=== PATIENT | female | born 1965 | race Caucasian/White ===

== ENCOUNTER 2023-10-24 15:48 | Outpatient (REF) | payer BC, SELFPAY ==
[2023-10-24 16:44] LABS: MANUAL DIFF FLAG NO
[2023-10-24 17:23] LABS: Basophils Absolute Auto 0.1 X10*3/uL (0.0-0.2); Eosinophils Absolute Auto 0.2 X10*3/uL (0.0-0.4); Eosinophils Percent Auto 3.7 % (0-4); Hematocrit 39.2 % (37.0-47.0); Hemoglobin 12.7 g/dl (12.0-16.0); Imm Gran Abs Auto 0.01 X10*3/uL (0.00-0.03); Imm Gran Pct Auto 0.2 % (0.0-0.4); Lymphocytes Absolute Auto 1.8 X10*3/uL (1.2-4.9); Lymphocytes Percent Auto 36.9 % (20-40); Mean Corpuscular HGB Conc 32.4 g/dl (31.0-35.0); Mean Corpuscular Hemoglobin 26.7 pg (27.0-33.0); Mean Corpuscular Volume 82.5 fL (80.0-98.0); Mean Platelet Volume 9.2 fL (9.4-12.3); Monocytes Absolute Auto 0.4 X10*3/uL (0.1-1.2); Monocytes Percent Auto 7.6 % (2-11); Neutrophils Absolute Auto 2.5 x10*3/uL (2.0-8.3); Neutrophils Percent Auto 50.6 % (45-73); Platelet Count 372 X10*3/uL (160-400); Red Blood Count 4.75 X10*6/uL (4.20-5.50); Red Cell Distribution Width 16.7 % (11.0-16.0); White Blood Count 4.9 X10*3/uL (4.8-10.8)
[2023-10-24 18:47] LABS: Carbamazepine Tegretol 9.5 mcg/mL (5.0-12.0)
[2023-10-24 18:52] LABS: Alanine Aminotransferase 20 U/L (0-31); Albumin Level 4.8 g/dL (3.5-5.0); Alkaline Phosphatase 90 U/L (39-117); Anion Gap 18 (12-20); Aspartate Amino Transferase 24 U/L (5-31); Bilirubin Total 0.2 mg/dL (0.0-1.0); Blood Urea Nitrogen 9 mg/dL (9-16); Calcium 10.3 mg/dL (8.4-10.2); Carbon Dioxide 22 mmol/L (22-29); Chloride 99 mmol/L (96-108); Estimated Glomerular Filt Rate > 60; Glucose Random 96 mg/dL (60-115); Iron 51 mcg/dL (30-160); Percent Iron Saturation 14 % (15-50); Sodium 135 mmol/L (135-145); Total Iron Binding Capacity 366 mcg/dL (228-428); Total Protein 8.3 g/dL (6.5-8.0); Unsaturated Iron Binding 315 ug/dL
[2023-10-24 19:10] LABS: TSH reflex Free T4 2.21 uIU/mL (0.32-4.0)
== END 2023-10-24 15:49 | disposition home or self-care (01) ==
LOC: HO.LAB 15:48
PROVIDERS: Physician Assistant; PCP Internal Medicine; Visit Provider Internal Medicine
DX: R53.83 Other fatigue (principal); D64.9 Anemia, unspecified
CPT/HCPCS: 36415; 80053; 80156; 82550; 83540; 84443; 85025

== ENCOUNTER 2024-04-26 10:22 | Outpatient (AMB) | payer BC, SELFPAY ==
--- NOTE | 2024-04-26 10:40 | A.SPINEOV_ITS ---
Vital Signs 04/26/24 10:42 Height 4 ft 11 in Weight 195 lb BMI 39.4 Intake Visit Reasons: spinal stenosis/DDD Intake Note: Ms. Fajardo is here today c/o Low back pain that radiates down to the ankles. Coal Miner Required: No Allergies phenytoin [From DILANTIN] Allergy (Intermediate, Verified 04/26/24 10:41) RASH amoxicillin [Augmentin] Allergy (Unknown, Verified 04/26/24 10:41) Unknown clavulanic acid [Augmentin] Allergy (Unknown, Verified 04/26/24 10:41) Unknown Physical Exam Vital Signs: BMI result Body Mass Index 39.4 Assessment & Plan Assessment & Plan (1) Lumbar degenerative disc disease: Code(s): M51.369 - Other intervertebral disc degeneration, lumbar region without mention of lumbar back pain or lower extremity pain Category: Medical Plan Dear dear colleague Thank you for referring Abby Fajardo to the office today with a chief complaint of bilateral leg pain. HPI: This 59-year-old female states that she has a 5 year history of pain radiating down both legs with walking and standing. The symptoms improve when she sits down. She was seen by Dr. Linares in the past who gave her injections without relief. She has mild numbness on the lateral side of her right thigh. No motor weakness. She has diffuse arthritis. She denies weakness. Comes in for surgical consultation PMH: Bilateral hand surgeries, cholecystectomy, ischemic stroke, bleeding ulcers, seizure disorder Medications: Tegretol losartan, gabapentin, Soma, Tylenol aspirin, ibuprofen p.r.n. Allergies: Dilantin Social history: Employed. Nonsmoker. Physical Exam: She ambulates with a cane in a flexed position with bilateral feet in inversion. Straight leg raise negative. No motor deficits or sensory deficits. Radiological Studies: MRI done at [facility] shows multilevel lumbar degenerative disc disease and mild multilevel central and foraminal stenosis Impression/Plan: This patient clinically as to symptoms of neurogenic claudication but the MRI is not able to confirm this diagnosis. I reviewed the imaging in detail with the patient and explained to her that her radiological features are not severe enough to undergo a decompressive surgery. I recommended pain management. I discharged her from further follow-up. Thank you for allowing me to participate in your patients care. total time spent was 50 minutes in counseling ,coordination of plan, personal review of imaging, surgical decision making and subsequent plan Ranjit Pennings MD, PhD Spine Fellowship Trained Neurosurgeon Director, [facility] Coding Level of Care Code New Pt Level 4 (69699) Diagnoses Lumbar degenerative disc disease M51.369
[2024-04-26 10:42] VITALS: BMI 39.4
== END 2024-04-26 11:11 | disposition home or self-care (01) ==
PROVIDERS: PCP Internal Medicine; Referring Provider Physician Assistant; Visit Provider Neurological Surgery
DX: M51.369 Other intervertebral disc degeneration, lumbar region without mention of lumbar back pain or lower extremity pain (principal)
CPT/HCPCS: 99204

== ENCOUNTER → 2024-04-26 10:22 | Outpatient (BNVA) | payer BC, SELFPAY | PROVIDERS: PCP Internal Medicine; Referring Provider Physician Assistant; Visit Provider Neurological Surgery ==

== ENCOUNTER 2025-02-06 12:53 | Outpatient (AMB) | payer BC, SELFPAY ==
--- NOTE | 2025-02-06 13:03 | A.OFFPC_ITS ---
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 Intake Note: New patient visit Principle Industrial Hygienist Required: No Allergies phenytoin (From DILANTIN) Allergy (Severe, Verified 02/06/25 13:10) RASH amoxicillin (Augmentin) Allergy (Unknown, Verified 02/06/25 13:03) Unknown clavulanic acid (Augmentin) Allergy (Unknown, Verified 02/06/25 13:03) Unknown Medication List - Last Reconciled 02/06/25 by Palma Weeks PA-C carisoprodol (Soma) 350 mg PO BEDTIME PRN 30 days gabapentin 100 mg PO TID losartan 25 mg PO BID Tobacco use date assessed: 02/06/25 Dental Screening Dental Screen Date: 02/06/25 Did you have a dental visit in the last 12 months?: Yes Did you have a dental problem in the last 6 months where you did not have access to dental care?: No Was dental information given to patient?: Patient has dentist HPI Senior Linux Systems Engineer regular appointment HPI Details Patient is a 56-year-old female who presents today to [facility] care. She is transferring from [facility]. She reports a significant past medical history of hypertension, seizure disorder, hx of cva, history of peptic ulcer disease, OA, DDD, and chronic pain. MSK: She did bring in a printed list today describing all of her aches and pains. -reports bilateral hip pain that she faviola cribes as stabbing and throbbing in nature with also an intermittent pinching in her thigh. Sometimes it feels like it locks up and she can not move as well. She also gets an intermittent burning sensation in her legs. Sometimes it feels like they could give out. -endorses bilateral knee pain right is w orse than left -states her lower legs are also very salome nful and the pain feels like a throbbing sensation which makes it difficult to sleep. Sometimes feels like there is a steel jamie in her lower leg. -states that she has pain in her low diane k that is mostly with walking and sitting for long periods. States that it feels like her spine pops out 20 times a day. -also reports neck and shoulder pain mos tly on the right side. States that previously her right biceps was ruptured. Her neck cracks frequently. -bilateral elbow pain -reports bilateral wrist and hand pain a s well -also endorses right foot pain not const ant but also very often. Has a bunion. States that she takes gabapentin 300 mg total daily and Soma as needed for muscle pain. She is also on Tylenol up to 4 mg a day and ibuprofen typically 400 mg per day. She hsa followed with Dr. Rojas and states that there was not much that could be offered. She has tried injections in the past but ineffective. She states that she saw rheum who told her she was wasting their time . CV: Blood pressure today in the office is elevated at 148/108. She states at home her bp is normal around 120/70. She gets stressed coming into doctor's off ices and has a hx of white coat htn. Asymptomatic. She is supposed to be on losartan 25 mg twice a day. Neuro: On Tegretol 200 mg q.i.d. following with Neurology, Dr. Alonso. She also reports a hx of a stroke 11 years ago and denies any lingering sx. GI: On omeprazole 20 mg Psych: states that she has some depression but only related to needing a cane. She does not like that she has to use a cane and cannot bowl anymore. Denies real depression sx. 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 1. Little interest or pleasure in doing things: several days (Because of issues with walking, and cane) 2. Feeling down, depressed, or hopeless: several days (Because of issues with walking, and cane) 3. Trouble falling or staying asleep, or sleeping too much: several days (Because of issues with walking, and cane) 4. Feeling tired or having little energy: several days (Because of issues with walking, and cane) 5. Poor appetite or overeating: not at all 6. Feeling bad about yourself - or that you are a failure or have let yourself or your family down: not at all 7. Trouble concentrating on things, such as reading the newspaper or watching television: not at all 8. Moving or speaking so slowly that other people could have noticed. Or the opposite - being so fidgety or restless that you have been moving around a lot more than usual: nearly every day (Because of issues with walking, and cane) 9. Thoughts that you would be better off or of hurting yourself in some way: not at all Total score: 7 Depression Screening Interpretation: Positive Depression Screening Follow-up: Existing condition, Follow-up Visit Requested and Declines treatment Depression Screening Done: Yes 46084 - PHQ-9 Billing: Yes Source: Developed by Drs. Xiang Joshua, Nichole Neil, Bernardino Hunt and colleagues, with an educational jazzy from [employer]. Thrive Questionnaire I am a: Patient What is your living situation today?: I have a steady place to live Within the past 12 months, did the food you bought not last and you didn't have the money to get more?: Never true Within the past 12 months, did you worry whether your food would run out before you got money to buy more?: Never true Do you have trouble paying for medicines?: No Do you have trouble getting transportation to medical appointments?: No Do you have trouble paying your heating and electricity bill?: No Do you have trouble taking care of your child, family member or friend?: I choose not to answer this question Do you have trouble with day-to-day activities such as bathing, preparing meals, shopping, managing finances, etc.?: I choose not to answer this question Are you currently unemployed and looking for a job?: No Are you interested in more education?: No Please select the resources that you would like help with: None Currently or been in a relationship where the following occur: No concerns reported THRIVE Score: 0 AUDIT C Alcohol Use Questionnaire (AUDIT-C) 1. How often do you have a drink containing alcohol?: Never Total Score: 0 NINA-7 AMB Questionnaire NINA-7 Date NINA - 7 assessed: 02/06/25 Feeling nervous, anxious, or on edge: 0 = Not at all Not being able to stop or control worryin = Not at all Worrying too much about different things: 0 = Not at all Trouble relaxin = Not at all Being so restless that it is hard to sit still: 0 = Not at all Becoming easily annoyed or irritable: 0 = Not at all Feeling afraid as if something awful might happen: 0 = Not at all Total NINA-7 score (0-4 normal; 5-9 mild; 10-14 moderate; 15-21 severe): 0 Source: Developed by Drs. Xiang Joshua, Nichole Neil, Bernardino Hunt and colleagues, with an educational jazzy from [employer]. NINA-7 Assessment Billing NINA-7 Assessment Tool: NINA-7 Assessment 70937 Physical exam (Primary Care) Vital Signs: Last Vital Signs Temp 98.4 F 02/06/25 13:09 Pulse 97 02/06/25 13:09 Resp 14 02/06/25 13:09 BP 148/108 H 02/06/25 13:09 Pulse Ox 97 02/06/25 13:09 Oxygen Delivery Method Room Air 02/06/25 13:09 BMI result Body Mass Index 39.8 Tobacco/Smoking Status: Tobacco use Status Tobacco use date assessed 02/06/25 02/06/25 13:06 Patient Tobacco Use Status Never used Tobacco 02/06/25 13:06 e-Cigarette/Vaping Use Never Used 02/06/25 13:14 PHQ-9: PHQ-9 Score PHQ-9: Total score 7 02/06/25 13:18 Depression Screening Interpretation: Positive Depression Screening Follow-up: Existing condition, Follow-up Visit Requested and Declines treatment Currently or been in a relationship where the following occur: No concerns reported Const Orientation/consciousness: patient oriented x3 HENMT Ears: hearing grossly normal bilaterally and TM's normal bilaterally General nose exam: No nasal polyps present Face and sinus: Yes sinuses nontender Mouth: Normal oral and palatal mucosa present Eyes Pupils: Equal, round and reactive pupils present EOM: EOMs intact bilaterally Neck Neck: Yes full ROM and Yes no lymphadenopathy Thyroid: Thyroid normal Chest Chest palpation & inspection: normal inspection of the chest Resp Auscultation: clear to auscultation bilaterally Cardio Rate: regular rate Rhythm: regular rhythm Heart sounds: S1 normal heart sound present and S2 normal heart sound present Peripheral pulses: Peripheral pulses 2+ throughout GI Other: Soft, nontender Auscultation: normal bowel sounds Rectal Exam - Female: deferred General: Yes no CVA tenderness Back/Spine/Pelvis Other: Nontender Back: no CVA tenderness Skin General skin exam: no rashes or lesions noted Neuro General: patient oriented x3, gait normal, CN's II-XI intact bilaterally and deep tendon reflexes 2+ bilaterally Cranial nerves: Yes Equal, round and reactive pupils present Motor exam (neuro): 5/5 motor strength present throughout Sensory Exam: double simultaneous stimulation for sensation normal Coordination: [id number] test normal and Romberg test negative Extrem General: Yes normal to inspection and Yes full ROM Psych Affect: normal affect Attitude: cooperative Thought process: Normal thought process present Thought content: Normal thought content present Insight: Good insight present (Psych) Judgement: Good judgement present (Psych) Coding Level of Care Code New Pt Level 5 (69668) Complex EM visit Add On G2211 Diagnoses Lumbar degenerative disc disease M51.369 Bilateral knee pain M25.561; M25.562 Neck pain M54.2 HTN (hypertension) I10 Prediabetes R73.03 Bilateral hip pain M25.551; M25.552 Additional Codes NINA-7 Assessment Billing - NINA-7 Assessment Tool: NINA-7 Assessment 82077 ([id number]) PHQ-9 - 03455 - PHQ-9 Billing: Yes ([id number]) Assessment & Plan Assessment & Plan (1) Lumbar degenerative disc disease: Code(s): M51.369 - Other intervertebral disc degeneration, lumbar region without mention of lumbar back pain or lower extremity pain Category: Medical Plan: has tried injections without improvement currently on gabapentin, ibuprofen, soma prn, tylenol (2) Bilateral knee pain: Code(s): M25.561 - Pain in right knee; M25.562 - Pain in left knee Category: Medical Plan: as above (3) Neck pain: Code(s): M54.2 - Cervicalgia Category: Medical Plan: as above (4) HTN (hypertension): Code(s): I10 - Essential (primary) hypertension Category: Medical Plan: monitors at home and reports wnl advised to bring cuff into next appointment will recehck in a few weeks (5) Prediabetes: Code(s): R73.03 - Prediabetes Category: Medical Plan: a1c ordered (6) Bilateral hip pain: Code(s): M25.551 - Pain in right hip; M25.552 - Pain in left hip Category: Medical Plan: referral to ortho Plan 70 min spent in direct patient care, chart review, reviewing her list of concerns, note dictation Orders: Orders Comprehensive [place]. Panel Fast Today I10 - Essential (primary) hypertension, M25.561 - Pain in right knee, M25.562 - Pain in left knee, M51.369 - Other intervertebral disc degeneration, lumbar region without mention of lumbar back pain or lower extremity pain, M54.2 - Cervicalgia, R73.03 - Prediabetes Hemoglobin A1c Today I10 - Essential (primary) hypertension, M25.561 - Pain in right knee, M25.562 - Pain in left knee, M51.369 - Other intervertebral disc degeneration, lumbar region without mention of lumbar back pain or lower extremity pain, M54.2 - Cervicalgia, R73.01 - Impaired fasting glucose, R73.03 - Prediabetes Microalbumin, Random (w Creat) Today I10 - Essential (primary) hypertension, M25.561 - Pain in right knee, M25.562 - Pain in left knee, M51.369 - Other intervertebral disc degeneration, lumbar region without mention of lumbar back pain or lower extremity pain, M54.2 - Cervicalgia, R73.03 - Prediabetes Complete Blood Count Auto Diff Today I10 - Essential (primary) hypertension, M25.561 - Pain in right knee, M25.562 - Pain in left knee, M51.369 - Other intervertebral disc degeneration, lumbar region without mention of lumbar back pain or lower extremity pain, M54.2 - Cervicalgia, R73.03 - Prediabetes Lipid Panel Today I10 - Essential (primary) hypertension, M25.561 - Pain in right knee, M25.562 - Pain in left knee, M51.369 - Other intervertebral disc degeneration, lumbar region without mention of lumbar back pain or lower ex tremity pain, M54.2 - Cervicalgia, R73.03 - Prediabetes TSH reflex Free T4 Today I10 - Essential (primary) hypertension, M25.561 - Pain in right knee, M25.562 - Pain in left knee, M51.369 - Other intervertebral disc degeneration, lumbar region without mention of lumbar back pain or lower extremity pain, M54.2 - Cervicalgia, R73.03 - Prediabetes UA CC w/rflx Micro + Cult Today I10 - Essential (primary) hypertension, M25.561 - Pain in right knee, M25.562 - Pain in left knee, M51.369 - Other intervertebral disc degeneration, lumbar region without mention of lumbar back pain or lower extremity pain, M54.2 - Cervicalgia, R30.0 - Dysuria, R73.03 - Prediabetes Referrals Orthopedics Referral M25.551 - Pain in right hip, M25.552 - Pain in left hip, M25.561 - Pain in right knee, M25.562 - Pain in left knee, M51.369 - Other intervertebral disc degeneration, lumbar region without mention of lumbar back pain or lower extremity pain Medications: New losartan 25 mg PO BID 180 tabs 3RF gabapentin 100 mg PO TID 270 caps 3RF carisoprodol (Soma) 350 mg PO BEDTIME PRN 30 tabs 3RF muscle pain 30 days
[2025-02-06 13:09] VITALS: BP 148/108; PULSE 97; RESP 14; TEMP 36.9; O2SAT 97; BMI 39.8
--- OUTSIDE RECORDS SUMMARY | 2025-02-06 13:27 | XMS_ITS | Encounter Summary ---
Author Organization [facility] Address [address] [place] [address] Phone Care Team Providers Care Profile Saw Setup Operator Name Role Phone Halle Dave MD Primary Care Provider [phone] Halle Dave MD Unavailable [phone] Encounter Details Date Type Department Care Team (Late st Contact Info) Description 05/02/2017 Ancillary Orders [facility], -[address] [address] Jessie Chua PA [address] [place] [address] [email or web address]) Low back pain, unspecified back pain laterality, unspecified chronicity, with sciatica presence unspecified; Groin pain, right Social History Tobacco Use Types Packs/Day Years Used Date Smoking Tobacco: Never Assessed Comments Unknown Sex and Gender Information Value Date Recorded Sex Assigned at Not on file Legal Sex Female 9:40 PM EDT Gender Identity Not on file Sexual Orientation Not on file documented as of this encounter Plan of Treatment Not on file documented as of this encounter Results * XR Pelvis Outside (No Interpretation) (05/02/2017 12:00 AM EST) Narrative SYSTEMGENERATED, DOCUMENTATION - 05/02/2017 2:17 PM EST This study is for PACS storage only and not for interpretation. us Jessie MARTÍNEZ IMG OUTSIDE IMAGING W/OUT INTER PRETATION Final Result documented in this encounter Visit Diagnoses Diagnosis Low back pain, unspecified back pain laterality, unspecified chronicity, with sciatica presence unspecified Groin pain, right Low back pain, unspecified back pain laterality, unspecified chronicity, with sciatica presence unspecified Groin pain, right documented in this encounter Care Teams Profile Saw Setup Operator Relationship Specialty Start Date End Date Halle Dave MD [address] [place] [address] [email or web address] PCP - General 03/27/17 Halle Dave MD [address] [place] [address] [email or web address] Insurance Assigned Provider 09/16/23 documented as of this encounter Additional Source Comments The information contained in this document represents components of the legal health record. It is not the complete legal health record.[facility]
--- OUTSIDE RECORDS SUMMARY | 2025-02-06 13:27 | XMS_ITS | Encounter Summary ---
Author Organization [facility] Address [address] [place] [address] Phone Care Team Providers Care Assistive Technology Specialist Name Role Phone Halle Dave MD Primary Care Provider [phone] Halle Dave MD Unavailable [phone] Encounter Details Date Type Department Care Team (Late st Contact Info) Description 10/30/2018 Ancillary Orders [facility] - [address] [address] Daria Matthews MD [address] [place] [address] Orthopedics & Sports Medicine, [facility] [place] [address] [email or web address] Wrist pain, acute, left Social History Tobacco Use Types Packs/Day Years Used Date Smoking Tobacco: Never Smokeless Tobacco: Never Alcohol Use Standard Drinks/Week Comments No 0 (1 standard drink = 0.6 oz pur e alcohol) Comments Unknown Sex and Gender Information Value Date Recorded Sex Assigned at Not on file Legal Sex Female 9:40 PM EDT Gender Identity Not on file Sexual Orientation Not on file documented as of this encounter Plan of Treatment Not on file documented as of this encounter Results * XR WRIST 3 OR MORE VIEWS (LEFT) (10/30/2018 9:49 AM EDT) Narrative SYSTEMGENERATED, DOCUMENTATION - 10/30/2018 9:49 AM EDT This image report has been auto-finalized and has not been read by a Radiologist. Interpretation has been included in the provider encounter note for this date of service. us Daria Matthews MD IMG XR UPPER EXTREMITY Final Result documented in this encounter Visit Diagnoses Diagnosis Wrist pain, acute, left Wrist pain, acute, left documented in this encounter Care Teams Assistive Technology Specialist Relationship Specialty Start Date End Date Halle Dave MD [address] [place] [address] [email or web address] PCP - General 03/27/17 Halle Dave MD [address] [place] [address] [email or web address] Insurance Assigned Provider 09/16/23 documented as of this encounter Additional Source Comments The information contained in this document represents components of the legal health record. It is not the complete legal health record.[facility]
--- OUTSIDE RECORDS SUMMARY | 2025-02-06 13:27 | XMS_ITS | Encounter Summary ---
Author Organization [facility] Address [address] [place] [address] Phone Care Team Providers Care Mac Artist Name Role Phone Halle Dave MD Primary Care Provider [phone] Halle Dave MD Unavailable [phone] Encounter Details Date Type Department Care Team (Late st Contact Info) Description 10/31/2018 Prep for Surgery [facility] Virtual Department [address] [place] [address] Daria Matthews MD [address] [place] [address] [facility] [place] [address] Social History Tobacco Use Types Packs/Day Years [...] on file documented as of this encounter Visit Diagnoses Not on filedocumented in this encounter Care Teams Mac Artist Relationship Specialty Start Date End Date Halle Dave MD [address] [place] [address] PCP - General 03/27/17 Halle Dave MD [address] [place] [address] [email or web address] Insurance Assigned Provider 09/16/23 documented as of this encounter Additional Source Comments The information contained in this document represents components of the legal health record. It is not the complete legal health record.[facility]
--- OUTSIDE RECORDS SUMMARY | 2025-02-06 13:27 | XMS_ITS | Encounter Summary ---
Author Organization [facility] Address [address] [place] [address] Phone Care Team Providers Care Sales Account Associate Name Role Phone Halle Dave MD Primary Care Provider [phone] Halle Dave MD Unavailable [phone] Encounter Details Date Type Department Care Team (Late st Contact Info) Description 10/31/2018 Prep for Surgery [facility] Virtual Department [address] [place] [address] Daria Matthews MD [address] [place] [address] [facility] [place] [address] Social History Tobacco Use Types Packs/Day Years [...] on filedocumented in this encounter Care Teams Sales Account Associate Relationship Specialty Start Date End Date Halle Dave MD [address] [place] [address] PCP - General 03/27/17 Halle Dave MD [address] [place] [address] [email or web address] Insurance Assigned Provider 09/16/23 documented as of this encounter Additional Source Comments The information contained in this document represents components of the legal health record. It is not the complete legal health record.[facility]
--- OUTSIDE RECORDS SUMMARY | 2025-02-06 13:27 | XMS_ITS | Encounter Summary ---
Author Organization [facility] Address [address] [place] [address] Phone Care Team Providers Care Metal Bench Patternmaker Name Role Phone Halle Dave MD Primary Care Provider [phone] Halle Dave MD Unavailable [phone] Encounter Details Date Type Department Care Team (Latest Contact Info) Description 05/02/2023 Transcribe Orders Virtual Department [address] [place] [address] Jessie Chua PA [address] [place] [address] [email or web address] Bilateral hip pain (Primary Dx); Bilateral thigh pain Social History Tobacco Use Types Packs/Day Years Used Date Smoking Tobacco: Never Smokeless Tobacco: Never Alcohol Use Standard Drinks/Week Comments No 0 (1 standard drink = 0.6 oz pur e alcohol) Education Answer Date Recorded Are you interested in more education? Not on kraig e 10/07/2022 Are you concerned about learning? Not on file 10/07/2022 No 10/07/2022 No 10/07/2022 Digital Access Answer Date Recorded No 11/07/2022 No 11/07/2022 Reliable internet access at home? Not on file 11/07/2022 Device with a working camera? Not on file Comments No Sex and Gender Information Value Date Recorded Sex Assigned at Not on file Legal Sex Female 9:40 PM EDT Gender Identity Not on file Sexual Orientation Not on file documented as of this encounter Plan of Treatment Not on file documented as of this encounter Visit Diagnoses Diagnosis Bilateral hip pain- Primary Pain in joint, pelvic region and thigh Bilateral thigh pain documented in this encounter Care Teams Metal Bench Patternmaker Relationship Specialty Start Date End Date Halle Dave MD [address] [place] [address] [email or web address] PCP - General 03/27/17 Halle Dave MD [address] [place] [address] [email or web address] Insurance Assigned Provider 09/16/23 documented as of this encounter Additional Source Comments The information contained in this document represents components of the legal health record. It is not the complete legal health record.[facility]
--- OUTSIDE RECORDS SUMMARY | 2025-02-06 13:27 | XMS_ITS | Encounter Summary ---
Author Organization [facility] Address [address] [place] [address] Phone Care Team Providers Care Collateral Analyst Name Role Phone Halle Dave MD Primary Care Provider [phone] Halle Dave MD Unavailable [phone] Encounter Details Date Type Department Care Team (Late st Contact Info) Description 05/02/2017 Ancillary Orders [facility], -[address] [address] Jessie Chua PA [address] [place] [address] [email or web address] Low back pain, unspecified back pain laterality, unspecified chronicity, with sciatica presence unspecified Social History Tobacco Use Types Packs/Day Years Used Date Smoking Tobacco: Never Assessed Comments Unknown Sex and Gender Information Value Date Recorded Sex Assigned at Not on file Legal Sex Female 9:40 PM EDT Gender Identity Not on file Sexual Orientation Not on file documented as of this encounter Plan of Treatment Not on file documented as of this encounter Results * XR LUMBOSACRAL SPINE 4 OR MORE VIEWS (05/02/2017 2:49 PM EST) Anatomical Region Laterality Modality L-spine Radiographic Desirae ging 05/02/2017 2:50 PM EST Impressions 05/02/2017 2:54 PM EST Impression: Multilevel severe degenerative disc disease. Grade 1 spondylolisthesis of L4 upon L5. Possible stenosis of the neural canal at the L5 level. POS: [id number] Narrative 05/02/2017 2:54 PM EST Comparison: None 5 of the lumbar spine are obtained. Findings: The L3-L4 and L4-L5 disc spaces are severely narrowed. Vacuum disc phenomena is present at these levels. The L5-S1 disc space is obliterated. Severe endplate sclerosis and osteophyte formation is present at this level. A mild grade 1 spondylolisthesis of L4 upon L5 is present. The SI joints are maintained. The paravertebral soft tissues are normal except for evidence of cholecystectomy Procedure Note Kye Patino MD - 05/02/2017 Comparison: None 5 of the lumbar spine are obtained. Findings: The L3-L4 and L4-L5 disc spaces are severely narrowed. Vacuumdisc phenomena is present at these levels. The L5-S1 disc space is obliterated. Severe endplate sclerosis andosteophyte formation is present at this level. A mild grade 1 spondylolisthesis of L4 upon L5 is present. The SI jointsare maintained. The paravertebral soft tissues are normal except forevidence of cholecystectomy IMPRESSION: Impression: Multilevel severe degenerative disc disease. Grade 1 spondylolisthesis of L4 upon L5. Possible stenosis of the neural canal at the L5 level. POS: [id number] Jessie MARTÍNEZ IMG XR SPINE Final Result * XR PELVIS AP PLUS FROG OR OUTLET 2 VIEWS (05/02/2017 2:48 PM EST) Anatomical Region Laterality Modality Pelvis Radiographic Desirae ging 05/02/2017 2:49 PM EST Impressions 05/02/2017 2:50 PM EST Impression: Normal examination Narrative 05/02/2017 2:50 PM EST AP pelvis one view Pain The hip joints are well-maintained. The SI joints are normal. Mineralization and alignment are unremarkable. The soft tissues are normal Procedure Note Kye Patino MD - 05/02/2017 AP pelvis one view Pain The hip joints are well-maintained. The SI joints are normal.Mineralization and alignment are unremarkable. The soft tissues arenormal IMPRESSION: Impression: Normal examination Jessie MARTÍNEZ IMG XR PELVIS Final Result documented in this encounter Visit Diagnoses Diagnosis Low back pain, unspecified back pain laterality, unspecified chronicity, with sciatica presence unspecified Low back pain, unspecified back pain laterality, unspecified chronicity, with sciatica presence unspecified Low back pain, unspecified back pain laterality, unspecified chronicity, with sciatica presence unspecified documented in this encounter Care Teams Collateral Analyst Relationship Specialty Start Date End Date Halle Dave MD [address] [place] [address] [email or web address] PCP - General 03/27/17 Halle Dave MD [address] [place] [address] [email or web address] Insurance Assigned Provider 09/16/23 documented as of this encounter Additional Source Comments The information contained in this document represents components of the legal health record. It is not the complete legal health record.[facility]
--- OUTSIDE RECORDS SUMMARY | 2025-02-06 13:27 | XMS_ITS | Encounter Summary ---
Author Organization [facility] Address [address] [place] [address] Phone Care Team Providers Care Heater Room Helper Name Role Phone Halle Dave MD Primary Care Provider [phone] Halle Dave MD Unavailable [phone] Encounter Details Date Type Department Care Team (Late st Contact Info) Description 10/30/2018 Ancillary Orders [facility] [address] [place] [address] Daria Matthews MD [address] [place] [address] Orthopedics & Sports Medicine, [facility] [place] [address] Social History Tobacco Use Types Packs/Day Years [...] on filedocumented in this encounter Care Teams Heater Room Helper Relationship Specialty Start Date End Date Halle Dave MD [address] [place] [address] PCP - General 03/27/17 Halle Dave MD [address] [place] [address] [email or web address] Insurance Assigned Provider 09/16/23 documented as of this encounter Additional Source Comments The information contained in this document represents components of the legal health record. It is not the complete legal health record.[facility]
--- OUTSIDE RECORDS SUMMARY | 2025-02-06 13:27 | XMS_ITS | Encounter Summary ---
Author Organization [facility] Address [address] [place] [address] Phone Care Team Providers Care Administration Internship Name Role Phone Halle Dave MD Primary Care Provider [phone] Halle Dave MD Unavailable [phone] Encounter Details Date Type Department Care Team (Late st Contact Info) Description 11/16/2018 Procedure Pass OR Admitting Dept - Virtual Department [address] [place] [address] Social History Tobacco Use Types Packs/Day Years [...] on filedocumented in this encounter Care Teams Administration Internship Relationship Specialty Start Date End Date Halle Dave MD [address] [place] [address] [email or web address] PCP - General 03/27/17 Halle Dave MD [address] [place] [address] [email or web address] Insurance Assigned Provider 09/16/23 documented as of this encounter Additional Source Comments The information contained in this document represents components of the legal health record. It is not the complete legal health record.[facility]
--- OUTSIDE RECORDS SUMMARY | 2025-02-06 13:28 | XMS_ITS | Clinical Summary ---
Author Organization [facility] Address [address] [place] [address] Phone Care Team Providers Care Case Investigator Name Role Phone Halle Dave MD Primary Care Provider [phone] Halle Dave MD Unavailable Allergies Active Allergy Reactions Criticality Noted Date Comments Amoxicillin-Pot Clavulanate Diarrhea 11/13/19 19 Phenytoin Sodium Extended Rash Low 12/19/2016 Medications losartan (COZAAR) 25 MG tablet Take 1 tablet by mouth daily. Active aspirin 81 mg chewable tablet Take 2 tablets by mouth daily. Active carBAMazepine (TEGRETOL) 200 mg tablet Take 1 tablet by mouth 4 (four) times a day. Active gabapentin (NEURONTIN) 100 MG capsule Take 100 mg by mouth 3 (three) times a day. 2 Active carisoprodol (SOMA) 350 MG tablet Take 350 mg by mouth as needed. 2 Active ketoconazole 2 % cream Apply topically as needed. Active MULTIVITAMIN ORAL Take by mouth. Active acetaminophen (TYLENOL) 500 MG tablet Take 1,000 mg by mouth every 6 (six) hours as needed for pain (specific location in comments). Active ibuprofen (ADVIL,MOTRIN) 200 MG tablet Take 400 mg by mouth every 6 (six) hours as needed for pain (specific location in comments). Active magnesium oxide 250 mg (150 mg elemental) Tab Take 250 mg by mouth daily. Active mv-mn/folic ac/calcium/vit K1 (WOMEN'S 50 PLUS MULTIVITAMIN ORAL) Take by mouth. Activ e Active Problems Problem Noted Date Diagnosed Date Spinal stenosis of lumbar region 04/16/2023 Overview (04/16/2023): MRI 2019; LESI x2 (Dr. Ayoub) prior to onset of COVID19 pandemic w/o significant efficacy; not much benefit with current gabapentin rx Assessment & Plan (04/16/2023 7:51 PM EST): Clinical picture of bl LE pain, somewhat mitigated by spinal flexion, c/w l- spine stenosis. There is extensive degenerative disease throughout the l-spine described in 2019 MRI. Again, duloxetine may provide some symptomatic benefit. However, given the extent of disease, she would benefit from dedicated re-evaluation with a technical services specialist. Unfortunately I have nothing rheumatology-specific to offer at this time. 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 General tx approach to OA discussed including NSAIDs, duloxetine, PT, wt loss, and intra-articular steroid injection. Patient prefers to see her PCP to discuss possible switch to meloxicam and addition of duloxetine. Would proceed with x-rays of bl hips rather than just the right hip, though certainly hip range of motion may be restricted secondary to degenerative changes of the l-spine. Dyslipidemia 03/19/2018 Seizure disorder 03/19/2018 History of CVA (cerebrovascular accident) 2017 Gastric ulcer with hemorrhage 03/19/2018 Class 3 severe obesity due t o excess calories with serious comorbidity and body mass index (BMI) of 40.0 to 44.9 in adult 03/19/2018 Left carpal tunnel syndrome Ganglion cyst of joint of finger of left hand De Quervain's tenosynovitis, left Family History Medical History Relation Comments No Known Problems Brother Hypertension Mother sepsis Mother Diabetes Paternal Grandmother No Known Problems Sister Relation Status Comments Brother Alive Father Alive Mother Paternal Grandmother Sister Alive Social History Tobacco Use Types Packs/Day Years [...] on file Sexual Orientation Not on file Last Filed Vital Signs Vital Sign Reading Time Taken Comments Blood Pressure 138/88 04/05/2023 3:46 PM EDT Pulse 95 04/05/2023 3:46 PM EDT Temperature 36.2 C (97.2 F) 12/28/2018 11:04 AM EDT Respiratory Rate 14 12/28/2018 9:13 AM EDT Oxygen Saturation 98% 04/05/2023 3:46 PM EDT Inhaled Oxygen Concentration - - Weight 85.3 kg (188 lb) 04/05/2023 3:46 PM EDT Height 149.9 cm (4' 11 ) 04/05/2023 3:46 PM EDT Body Mass Index 37.97 04/05/2023 3:46 PM EDT Plan of Treatment Health Maintenance Due Date Last Done Comments Adult Td,Tdap Booster 1966 DEPRESSION SCREENING 1978 HEPATITIS C SCREENING 02/22/1984 HIV ONE-TIME SCREENING (18-65 YEARS) 02/22/1984 PAP SMEAR 1987 COLOGUARD 2011 COLONOSCOPY 2011 COLORECTAL CANCER SCREENING 2011 FIT TEST 2011 FOBT 2011 SIGMOIDOSCOPY 2011 VIRTUAL COLONOSCOPY 2011 MAMMOGRAM 03/22/2014 03/22/2012 PNEUMOCOCCAL VACCINES (50+ years) (1 of 1 - PCV) 02/22/2016 ZOSTER VACCINES (1 of 2) 02/22/2016 BLOOD PRESSURE 10/05/2023 04/05/2023 COVID-19 VACCINE (1 - season) 2024 CARBAMAZEPINE (TEGRETOL) LEVEL 05/02/2024 05/02/2023, 04/22/2022 CREATININE LEVEL 04/05/2025 04/05/2024, 05/2024, 05/02/2023, Additional history exists POTASSIUM LEVEL 04/05/2025 04/05/2024, 11/10, 05/02/2023, Additional history exists SCREENING FOR DIABETES 04/05/2027 04/05/2024, 2021 LIPID PANEL 05/02/2028 05/02/2023, 04/13, 04/22/2022 SMOKING STATUS SCREENING (Once After 26 Yrs) Completed 04/05/2023 HEPATITIS A VACCINES Aged Out No long er eligible based on patient's age to complete this topic HIB VACCINES Aged Out No longer eligi ble based on patient's age to complete this topic MENINGOCOCCAL VACCINES (ACWY) Aged Out No longer eligible based on patient's age to complete this topic MENINGOCOCCAL VACCINES (B) Aged Out N o longer eligible based on patient's age to complete this topic Medical Devices Not on file Procedures Procedure Name Priority Date/Time Associated Diagnosis Comments BASIC METABOLIC PANEL Routine 04/05/2024 11:25 AM EDT Hypertension, unspecified type LIPID PANEL Routine 05/02/2023 11:47 AM EST Elevated CPK Hypertension, unspecified type Arthralgia, unspecified joint CARBAMAZEPINE (TEGRETOL) LEVEL Routine 05/02/2023 11:47 AM EST Elevated CPK Hypertension, unspecified type Arthralgia, unspecified joint from Last 3 Months or Most Recently Relevant to Health Maintenance Results * (ABNORMAL) Basic metabolic panel (04/05/2024 11:25 AM EDT) SODIUM 134 133 - 146 mmol/L [facility] CHLORIDE 97 96 - 108 mmol/L [facility] POTASSIUM 3.9 3.3 - 5.1 mmol/L [facility] CO2 22 21 - 35 mmol/L [facility] BUN 8 6 - 19 mg/dL [facility] CREATININE 0.60 0.5 - 1.5 mg/dL [facility] GLUCOSE 105(H) 70 - 99 mg/dL [facility] CALCIUM 9.2 8.4 - 10.3 mg/dL [facility] EGFR 104 >59 mL/min/1.7 3m2 [facility] Comment:Estimated glomerular filtration rate calculated using the CKD-EPI refit equation. ANION GAP 19 10 - 20 mmol/L [facility] Blood 04/05/2024 11:2 5 AM EDT 04/05/2024 11:30 AM EDT Jessie MARTÍNEZ LAB BLOOD ORDERABLES Final Resu lt Performing Organization Address [facility] Co de Phone Number [address] [phone] * Carbamazepine (Tegretol) level (05/02/2023 11:47 AM EST) CARBAMAZEPINE 8.3 8.0 - 12.0 ug/mL [facility] Blood 05/02/2023 11:4 7 AM EST 05/02/2023 12:02 PM EST Jessie MARTÍNEZ LAB BLOOD ORDERABLES Final Resu lt Performing Organization Address City/[facility]/ZIP Co de Phone Number [address] [address] * (ABNORMAL) Lipid panel (05/02/2023 11:47 AM EST) HDL 90 mg/dL [facility] Comment: Interpretation <40 mg/dL: Low HDL cholesterol (major risk factor for CHD) Greater than or equal to 60 mg/dL: High HDL cholesterol ( negative risk factor for CHD) HDL - cholesterol is affected by a number of factors, e.g. smoking, excerise, hormones, sex and age. CHOLESTEROL 271(H) 0 - 240 mg/dL [facility] TRIGLYCERIDES 139 30 - 160 mg/dL [facility] LDL 153(H) 50 - 129 mg/dL [facility] Comment: LDL levels in terms of risk for coronary heart disease: <100 mg/dL: Optimal 100-129 mg/dL: Near or above optimal 130-159 mg/dL: Borderline high 160-189 mg/dL: High >190 mg/dL: Very High CARDIAC RISK RATIO 3.0(L) 3.3 - 4.4 C [facility] Blood 05/02/2023 11:4 7 AM EST 05/02/2023 12:02 PM EST us Jessie MARTÍNEZ LAB BLOOD ORDERABLES Final Resu lt [facility] [address] [place] [address] from Last 3 Months or Most Recently Relevant to Health Maintenance Insurance [facility] [place] [address] [facility] Member Subscriber Plan / Payer (Ef fective 2018-Present) Name:Abby Fajardo Relation to Subscriber:Self Name:Abby Fajardo Payer ID:[id number] (NAIC) Type:HMO Address: [address] [facility] Member Subscriber Plan / Payer (Ef fective 2018-Present) Name:Abby Fajardo Relation to Subscriber:Self Name:Abby Fajardo Payer ID:[id number] (NAIC) Type:HMO Address: [address] [facility] Member Subscriber Plan / Payer (Ef fective 2018-Present) Name:Abby Fajardo Relation to Subscriber:Self Name:Abby Fajardo Payer ID:[id number] (NAIC) Type:HMO Address: [address] [facility] Advance Directives For more information, please contact: [phone] (9AM - 5PM [facility], Monday-Monday) * Full Code (Presumed) (Latest Code Status on File) Date Activated Date Inactivated Comments 12/28/2018 9:30 AM 12/28/2018 2:19 PM * Full Code (Presumed) Date Activated Date Inactivated Comments 11/16/2018 11:50 AM 11/16/2018 4:44 PM Care Teams Case Investigator Relationship Specialty Start Date End Date Halle Dave MD [address] [place] [address] [email or web address] PCP - General 03/27/17 Halle Dave MD [address] [place] [address] Insurance Assigned Provider 09/16/23 Additional Source Comments The information contained in this document represents components of the legal health record. It is not the complete legal health record.[facility]
--- OUTSIDE RECORDS SUMMARY | 2025-02-06 13:28 | XMS_ITS | Encounter Summary ---
Author Organization [facility] Address [address] [place] [address] Phone Care Team Providers Care Network Support Engineer Name Role Phone Halle Dave MD Primary Care Provider [phone] Halle Dave MD Unavailable [phone] Encounter Details Date Type Department Care Team (Late st Contact Info) Description 12/28/2018 Procedure Pass OR Admitting Dept - Virtual Department [address] [place] [address] Social History Tobacco Use Types Packs/Day Years Used Date Smoking Tobacco: Never Smokeless Tobacco: Never Alcohol Use Standard Drinks/Week Comments No 0 (1 standard drink = 0.6 oz pur e alcohol) Comments No Sex and Gender Information Value Date Recorded Sex Assigned at Not on file Legal Sex Female 9:40 PM EDT Gender Identity Not on file Sexual Orientation Not on file documented as of this encounter Plan of Treatment Not on file documented as of this encounter Visit Diagnoses Not on filedocumented in this encounter Care Teams Network Support Engineer Relationship Specialty Start Date End Date Halle Dave MD [address] [place] [address] PCP - General 03/27/17 Halle Dave MD [address] [place] [address] Insurance Assigned Provider 09/16/23 documented as of this encounter Additional Source Comments The information contained in this document represents components of the legal health record. It is not the complete legal health record.[facility]
== END 2025-02-06 14:01 | disposition home or self-care (01) ==
LOC: HO.HMCFM 12:54
PROVIDERS: PCP Physician Assistant; Visit Provider Physician Assistant
DX: M25.561 Pain in right knee (principal); M25.562 Pain in left knee; M54.2 Cervicalgia; I10 Essential (primary) hypertension; R73.03 Prediabetes; M25.551 Pain in right hip; M51.369 Other intervertebral disc degeneration, lumbar region without mention of lumbar back pain or lower extremity pain; M25.552 Pain in left hip

== ENCOUNTER → 2025-02-06 12:53 | Outpatient (BNVA) | payer BC, SELFPAY | PROVIDERS: PCP Physician Assistant; Visit Provider Physician Assistant | DX: I10 Essential (primary) hypertension (principal); R56.9 Unspecified convulsions; M19.90 Unspecified osteoarthritis, unspecified site; M51.369 Other intervertebral disc degeneration, lumbar region without mention of lumbar back pain or lower extremity pain; M25.561 Pain in right knee; M25.562 Pain in left knee; M54.2 Cervicalgia; R73.03 Prediabetes; M25.551 Pain in right hip; M25.552 Pain in left hip; Z86.73 Personal history of transient ischemic attack (TIA), and cerebral infarction without residual deficits | CPT/HCPCS: 96127 ==

== ENCOUNTER 2025-04-02 13:35 | Outpatient (AMB) | payer BC, SELFPAY ==
--- NOTE | 2025-04-02 13:38 | A.OFFPC_ITS ---
Vital Signs 04/02/25 13:44 Height 4 ft 8.69 in Weight 184 lb 6 oz BMI 40.3 BP 134/78 Blood Pressure Location Rt brachial Position Sitting Respiration 18 Pulse 75 Pulse Source Pulse Oximeter Temp 98.6 F Temp Source Oral Pulse Oximetry (%) 98 Oxygen Delivery Method Room Air Intake Visit Reasons: CPE f/u labs Intake Note: cpe f/u labs Public Address Servicer Required: No Allergies phenytoin (From DILANTIN) Allergy (Severe, Verified 04/02/25 13:41) RASH amoxicillin (Augmentin) Allergy (Unknown, Verified 04/02/25 13:41) Unknown clavulanic acid (Augmentin) Allergy (Unknown, Verified 04/02/25 13:41) Unknown Medication List - Last Reconciled 04/02/25 by Palma Weeks PA-C carisoprodol (Soma) 350 mg PO BEDTIME PRN 30 days diclofenac sodium 50 mg PO Q12H PRN gabapentin 300 mg PO BID losartan 25 mg PO BID omeprazole 20 mg PO DAILY Tobacco use date assessed: 04/02/25 Dental Screening Dental Screen Date: 04/02/25 Did you have a dental visit in the last 12 months?: Yes Did you have a dental problem in the last 6 months where you did not have access to dental care?: No Was dental information given to patient?: Patient has dentist HPI CPE f/u labs HPI Details Patient is a 60-year-old female who presents today for a cpe. She is transferring from [facility]. She reports a significant past medical history of hypertension, seizure disorder, hx of cva, history of peptic ulcer disease, OA, DDD, and chronic pain. MSK: She did bring in a printed list today describing all of her aches and pains. -reports bilateral hip pain that she faviola cribes as stabbing and throbbing in nature with also an intermittent pinching in her thigh. Sometimes it feels like it locks up and she can not move as well. She also gets an intermittent burning sensation in her legs. Sometimes it feels like they could give out. -endorses bilateral knee pain right is w orse than left -states her lower legs are also very salome nful and the pain feels like a throbbing sensation which makes it difficult to sleep. Sometimes feels like there is a steel jamie in her lower leg. -states that she has pain in her low diane k that is mostly with walking and sitting for long periods. States that it feels like her spine pops out 20 times a day. -also reports neck and shoulder pain mos tly on the right side. States that previously her right biceps was ruptured. Her neck cracks frequently. -bilateral elbow pain -reports bilateral wrist and hand pain a s well -also endorses right foot pain not const ant but also very often. Has a bunion. States that she takes gabapentin 300 mg total daily and Soma as needed for muscle pain. She is also on Tylenol up to 4 mg a day and ibuprofen typically 400 mg per day. She hsa followed with Dr. Rojas and states that there was not much that could be offered. She has tried injections in the past but ineffective. She states that she saw rheum who told her she was wasting their time . CV: Blood pressure today in the office is elevated at 134/78. She states at home her bp is normal around 120/70. She gets stressed coming into doctor's offices and has a hx of white coat htn. Asymptomatic. She is supposed to be on losartan 25 mg twice a day. She cannot tolerate statins. She had elevated CK levels. Not interested in repatha right now. Neuro: On Tegretol 200 mg q.i.d. following with Neurology, Dr. Alonso. She also reports a hx of a stroke 11 years ago and denies any lingering sx. GI: On omeprazole 20 mg Psych: states that she has some depression but only related to needing a cane. She does not like that she has to use a cane and cannot bowl anymore. Denies real depression sx. 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 Current occupational exposures/hazards: No Cognitive needs: No Hearing needs: No Vision needs: Yes (glasses) Questionnaire Thrive Questionnaire Date Thrive assessed: 02/06/25 I am a: Patient What is your living situation today?: I have a steady place to live Within the past 12 months, did the food you bought not last and you didn't have the money to get more?: Never true Within the past 12 months, did you worry whether your food would run out before you got money to buy more?: Never true Do you have trouble paying for medicines?: No Do you have trouble getting transportation to medical appointments?: No Do you have trouble paying your heating and electricity bill?: No Do you have trouble taking care of your child, family member or friend?: I choose not to answer this question Do you have trouble with day-to-day activities such as bathing, preparing meals, shopping, managing finances, etc.?: I choose not to answer this question Are you currently unemployed and looking for a job?: No Are you interested in more education?: No Please select the resources that you would like help with: None Currently or been in a relationship where the following occur: No concerns reported THRIVE Score: 0 NINA-7 AMB Questionnaire NINA-7 Date NINA - 7 assessed: 02/06/25 Source: Developed by Drs. Xiang Joshua, Nichole Neil, Bernardino Hunt and colleagues, with an educational jazzy from [employer]. Physical exam (Primary Care) Vital Signs: Last Vital Signs Temp 98.6 F 04/02/25 13:44 Pulse 75 04/02/25 13:44 Resp 18 04/02/25 13:44 BP 134/78 04/02/25 13:44 Pulse Ox 98 04/02/25 13:44 Oxygen Delivery Method Room Air 04/02/25 13:44 BMI result Body Mass Index 40.3 Tobacco/Smoking Status: Tobacco use Status Tobacco use date assessed 04/02/25 04/02/25 13:44 Patient Tobacco Use Status Never used Tobacco 04/02/25 13:42 e-Cigarette/Vaping Use Never Used 04/02/25 13:42 Thrive Assessment: Date of Thrive Assessment Date Thrive assessed 02/06/25 04/02/25 13:41 Currently or been in a relationship where the following occur: No concerns reported Const Orientation/consciousness: patient oriented x3 HENMT Ears: hearing grossly normal bilaterally and TM's normal bilaterally General nose exam: No nasal polyps present Face and sinus: Yes sinuses nontender Mouth: Normal oral and palatal mucosa present Eyes Pupils: Equal, round and reactive pupils present EOM: EOMs intact bilaterally Neck Neck: Yes full ROM and Yes no lymphadenopathy Thyroid: Thyroid normal Chest Chest palpation & inspection: normal inspection of the chest Resp Auscultation: clear to auscultation bilaterally Cardio Rate: regular rate Rhythm: regular rhythm Heart sounds: S1 normal heart sound present and S2 normal heart sound present Peripheral pulses: Peripheral pulses 2+ throughout GI Other: Soft, nontender Auscultation: normal bowel sounds Rectal Exam - Female: deferred General: Yes no CVA tenderness Back/Spine/Pelvis Other: Nontender Back: no CVA tenderness Skin General skin exam: no rashes or lesions noted Neuro Other: Ambulates with a cane General: patient oriented x3 and CN's II-XI intact bilaterally Cranial nerves: Yes Equal, round and reactive pupils present Extrem General: Yes normal to inspection and Yes full ROM Psych Affect: normal affect Attitude: cooperative Thought process: Normal thought process present Thought content: Normal thought content present Insight: Good insight present (Psych) Judgement: Good judgement present (Psych) Results Reviewed Results Reviewed: Laboratory Tests 10/24/23 16:42 WBC 4.9 RBC 4.75 Hgb 12.7 Hct 39.2 Plt Count 372 Sodium 135 Potassium 4.0 Chloride 99 Carbon Dioxide 22 Anion Gap 18 BUN 9 Creatinine 0.67 Estimated GFR > 60 Iron 51 Coding Level of Care Code Est Pt Prev Care 40-64y(85746) Diagnoses Routine general medical examination at a health care facility Z00.00 HTN (hypertension) I10 Prediabetes R73.03 Subclinical hypothyroidism E03.8 Seizure disorder G40.909 Neck pain M54.2 Assessment & Plan Assessment & Plan (1) Routine general medical examination at a health care facility: Code(s): Z00.00 - Encounter for general adult medical examination without abnormal findings Plan: reviewed Labs reviewed and ordered. She does not want any immunizations today (2) HTN (hypertension): Code(s): I10 - Essential (primary) hypertension Category: Medical Plan: Continue current regimen (3) Prediabetes: Code(s): R73.03 - Prediabetes Category: Medical Plan: Last A1c was 5.3. It is scanned into the chart. (4) Subclinical hypothyroidism: Code(s): E03.8 - Other specified hypothyroidism Category: Medical Plan: No symptoms at this point. We will monitor and recheck in 6 months. We did stacey lott that if it is still under active consider treatment. (5) Seizure disorder: Code(s): G40.909 - Epilepsy, unspecified, not intractable, without status epilepticus Category: Medical Plan: Needs an insurance referral to Neurology. (6) Neck pain: Code(s): M54.2 - Cervicalgia Category: Medical Plan: We will increase gabapentin to 300 mg twice a day She will try diclofenac in substitution for ibuprofen She will let me know how she does. Orders: Orders Comprehensive [place]. Panel Fast Today E03.8 - Other specified hypothyroidism, E78.5 - Hyperlipidemia, unspecified, I10 - Essential (primary) hypertension, R73.03 - Prediabetes, Z86.73 - Personal history of transient ischemic attack (TIA), and cerebral infarction without residual deficits Hemoglobin A1c Today E03.8 - Other specified hypothyroidism, E78.5 - Hyperlipidemia, unspecified, I10 - Essential (primary) hypertension, R73.01 - Impaired fasting glucose, R73.03 - Prediabetes, Z86.73 - Personal history of transient ischemic attack (TIA), and cerebral infarction without residual deficits TSH reflex Free T4 Today E03.8 - Other specified hypothyroidism, E78.5 - Hyperlipidemia, unspecified, I10 - Essential (primary) hypertension, R73.03 - Prediabetes, Z86.73 - Personal history of transient ischemic attack (TIA), and cerebral infarction without residual deficits Lipid Panel Today E03.8 - Other specified hypothyroidism, E78.5 - Hyperlipidemia, unspecified, I10 - Essential (primary) hypertension, R73.03 - Prediabetes, Z86.73 - Personal history of transient ischemic attack (TIA), and cerebral infarction without residual deficits Referrals Neurology Referral G40.909 - Epilepsy, unspecified, not intractable, without status epilepticus Medications: New omeprazole 20 mg PO DAILY 90 caps 0RF diclofenac sodium 50 mg PO Q12H PRN 60 tabs 3RF pain gabapentin 300 mg PO BID 180 caps 1RF Discontinued gabapentin Discontinued Reason: Doctor's Order 100 mg PO TID 270 caps 3RF Patient Instructions: increase gabapentin to 300 mg in the morning and nighttime continue prilosec 20 mg daily sub diclofenac in place of ibuprofen
[2025-04-02 13:44] VITALS: BP 134/78; PULSE 75; RESP 18; TEMP 37; O2SAT 98; BMI 40.3
--- OUTSIDE RECORDS SUMMARY | 2025-04-02 19:18 | XMS_ITS | Clinical Summary ---
Author Organization [facility] Address [address] [place] [address] Phone Care Team Providers Care Telemetry Tech Name Role Phone Halle Dave MD Primary Care Provider [phone] Halle Dave MD Unavailable [phone] Allergies Active Allergy Reactions Criticality Noted Date [...] would benefit from dedicated re-evaluation with a neuro psych sales specialist. Unfortunately I have nothing rheumatology-specific to [...] of left hand De Quervain's tenosynovitis, left Encounters Date Type Department Care Team Description 03/21/2025 11:21 AM EDT - 03/21/2025 11:59 PM EDT Hospital Encounter [facility] [address] [place] [id number] Palma Weeks PA Discharge Disposition: Home or Self Care 03/21/2025 Transcribe Orders [facility] [address] [place] [id number] Palma Weeks PA Other intervertebral disc degeneration of lumbar region without lumbar back pain or lower extremity pain (Primary Dx); Right knee pain, unspecified chronicity; Left knee pain, unspecified chronicity; Cervicalgia; Essential (primary) hypertension; Prediabetes from Last 3 Months Family History Medical History Relation Comments No [...] of 2) 02/22/2016 BLOOD PRESSURE 10/05/2023 04/05/2023 CARBAMAZEPINE (TEGRETOL) LEVEL 05/02/2024 05/02/2023, 04/22/2022 INFLUENZA VACCINE (#1) 2025 COVID-19 VACCINE ( - season) 2025 CREATININE LEVEL 03/21/2026 03/21/2025, , 11/22/2023, Additional history exists POTASSIUM LEVEL 03/21/2026 03/21/2025, 03/13, 11/22/2023, Additional history exists SCREENING FOR DIABETES 03/21/2028 03/21/2025, 2024 LIPID PANEL 03/21/2030 03/21/2025, 04/13, 05/02/2023, Additional history exists RSV VACCINE (1 - 1-dose 75+ series) 2041 SMOKING STATUS SCREENING (Once After 26 Yrs) [...] Procedure Name Priority Date/Time Associated Diagnosis Comments MICROALBUMIN/CREATINI NE RATIO, RANDOM URINE Routine 03/21/2025 11:45 AM EDT Other intervertebral disc degeneration of lumbar region without lumbar back pain or lower extremity pain Right knee pain, unspecified chronicity Left knee pain, unspecified chronicity Cervicalgia Essential (primary) hypertension Prediabetes URINALYSIS W/REFLEX URINE CULTURE Routine 03/21/2025 11:45 AM EDT Other intervertebral disc degeneration of lumbar region without lumbar back pain or lower extremity pain Right knee pain, unspecified chronicity Left knee pain, unspecified chronicity Cervicalgia Essential (primary) hypertension Prediabetes CBC Routine 03/21/2025 11:27 AM EDT Other intervertebral disc degeneration of lumbar region without lumbar back pain or lower extremity pain Right knee pain, unspecified chronicity Left knee pain, unspecified chronicity Cervicalgia Essential (primary) hypertension Prediabetes COMPREHENSIVE METABOLIC PANEL Routine 03/21/2025 11:27 AM EDT Other intervertebral disc degeneration of lumbar region without lumbar back pain or lower extremity pain Right knee pain, unspecified chronicity Left knee pain, unspecified chronicity Cervicalgia Essential (primary) hypertension Prediabetes HEMOGLOBIN A1C Routine 03/21/2025 11:27 AM EDT Other intervertebral disc degeneration of lumbar region without lumbar back pain or lower extremity pain Right knee pain, unspecified chronicity Left knee pain, unspecified chronicity Cervicalgia Essential (primary) hypertension Prediabetes LIPID PANEL Routine 03/21/2025 11:27 AM EDT Other intervertebral disc degeneration of lumbar region without lumbar back pain or lower extremity pain Right knee pain, unspecified chronicity Left knee pain, unspecified chronicity Cervicalgia Essential (primary) hypertension Prediabetes TSH WITH REFLEX Routine 03/21/2025 11:27 AM EDT Other intervertebral disc degeneration of lumbar region without lumbar back pain or lower extremity pain Right knee pain, unspecified chronicity Left knee pain, unspecified chronicity Cervicalgia Essential (primary) hypertension Prediabetes FREE T4 Routine 03/21/2025 11:27 AM EDT Other intervertebral disc degeneration of lumbar region without lumbar back pain or lower extremity pain Right knee pain, unspecified chronicity Left knee pain, unspecified chronicity Cervicalgia Essential (primary) hypertension Prediabetes CARBAMAZEPINE (TEGRETOL) LEVEL Routine 05/02/2023 11:47 AM EST Elevated CPK Hypertension, unspecified type Arthralgia, unspecified joint from Last 3 Months or Most Recently Relevant to Health Maintenance Results * Urinalysis w/reflex Urine Culture (03/21/2025 11:45 AM EDT) COLOR Yellow Yellow [facility] CLARITY Clear [facility] GLUCOSE Negative Negative [facility] BILI Negative Negative [facility] KETONES Negative Negative [facility] SPECIFIC GRAVITY 1.010 1.005 - 1.030 [facility] BLOOD Negative Negative [facility] PH 6.5 5.0 - 8.0 [facility] Protein-UA Negative Negative [facility] NITRITE Negative Negative [facility] Leukocyte esterase, ur Negative Negative [facility] Urine (Urine) 03/21/2025 11: 45 AM EDT 03/21/2025 11:47 AM EDT us Palma MARTÍNEZ URINE ORDERABLES Final Res ult Performing Organization Address City/State/[facility] Co de Phone Number [address] [address] * Microalbumin/creatinine ratio, random urine (03/21/2025 11:45 AM EDT) URINE MICROALBUMIN <1.2 0 - 2.3 mg/dL [facility] URINE CREATININE 53 mg/dL [facility] MICROALB/CRE RATIO NOT CALCULATED 0 - 20 mg/g Cre [facility] Comment:due to Microalbumin <1.2 Urine (Urine) 03/21/2025 11: 45 AM EDT 03/21/2025 11:47 AM EDT us Palma MARTÍNEZ URINE ORDERABLES Final Res ult [address] [address] * (ABNORMAL) Comprehensive metabolic panel (03/21/2025 11:27 AM EDT) SODIUM 132(L) 133 - 146 mmol/L [facility] POTASSIUM 4.2 3.3 - 5.1 mmol/L [facility] CHLORIDE 97 96 - 108 mmol/L [facility] CO2 23 21 - 35 mmol/L [facility] BUN 5(L) 6 - 19 mg/dL [facility] CREATININE 0.40(L) 0.5 - 1.5 mg/dL [facility] GLUCOSE 94 70 - 99 mg/dL [facility] ALBUMIN 4.6 3.9 - 4.8 g/dL [facility] TOTAL PROTEIN 7.5 6.5 - 8.0 g/dL [facility] CALCIUM 9.2 8.4 - 10.3 mg/dL [facility] ALKALINE PHOSPHATASE 83 39 - 117 U/L [facility] TOTAL BILIRUBIN 0.3 0.0 - 1.2 mg/dL [facility] AST 25 0 - 37 U/L [facility] ALT 17 0 - 40 U/L [facility] GLOBULIN 2.9 1 - 4.8 g/dL [facility] EGFR 114 >59 mL/min/1.7 3m2 [facility] Comment:Estimated glomerular filtration rate calculated using the CKD-EPI refit equation. ANION GAP 16 10 - 20 mmol/L [facility] Blood 03/21/2025 11:2 7 AM EDT 03/21/2025 11:47 AM EDT us Palma MARTÍNEZ LAB BLOOD ORDERABLES Final Result [address] [address] * (ABNORMAL) TSH with reflex (03/21/2025 11:27 AM EDT) TSH 4.83(H) 0.27 - 4.20 uIU/mL [facility] Blood 03/21/2025 11:2 7 AM EDT 03/21/2025 11:47 AM EDT Palma MARTÍNEZ LAB BLOOD ORDERABLES Final Result [address] [address] * CBC (03/21/2025 11:27 AM EDT) WBC 4.06 4.00 - 11.00 K/uL [facility] RBC 4.08 4.00 - 5.20 M/uL [facility] HGB 12.6 12.0 - 16.0 g/dL [facility] HCT 37.4 36.0 - 46.0 % [facility] PLT 340 150 - 450 K/uL [facility] MCV 91.7 80.0 - 100.0 fL [facility] MCH 30.9 27.0 - 31.0 pg [facility] MCHC 33.7 32.0 - 36.0 g/dL [facility] RDW 12.9 11.5 - 14.5 % [facility] MPV 9.2 8.4 - 12.0 fL [facility] NRBC 0.00 0.00 /100 WBCs [facility] ABSOLUTE NRBC 0.00 0.00 K/uL [facility] Blood 03/21/2025 11:2 7 AM EDT 03/21/2025 11:47 AM EDT Palma MARTÍNEZ LAB BLOOD ORDERABLES Final Result Performing Organization Address City/[facility]/ZIP Co de Phone Number [address] [address] * Free T4 (03/21/2025 11:27 AM EDT) FREE T4 0.9 0.9 - 1.7 ng/dL [facility] Blood 03/21/2025 11:2 7 AM EDT 03/21/2025 11:47 AM EDT Palma MARTÍNEZ LAB BLOOD ORDERABLES Final Result Performing Organization Address City/[facility]/ZIP Co de Phone Number [address] [address] * Hemoglobin A1c (03/21/2025 11:27 AM EDT) HEMOGLOBIN A1C 5.3 4.3 - 5.8 % [facility] Blood 03/21/2025 11:2 7 AM EDT 03/21/2025 11:47 AM EDT Palma MARTÍNEZ LAB BLOOD ORDERABLES Final Result Performing Organization Address City/[facility] Co de Phone Number [address] [address] * (ABNORMAL) Lipid panel (03/21/2025 11:27 AM EDT) HDL 78 mg/dL [facility] Comment: Interpretation <40 mg/dL: Low HDL cholesterol (major risk factor for CHD) Greater than or equal to 60 mg/dL: High HDL cholesterol ( negative risk factor for CHD) HDL - cholesterol is affected by a number of factors, e.g. smoking, excerise, hormones, sex and age. CHOLESTEROL 268(H) 0 - 240 mg/dL [facility] TRIGLYCERIDES 251(H) 30 - 160 mg/dL [facility] LDL 140(H) 50 - 129 mg/dL [facility] Comment: LDL levels in terms of risk for coronary heart disease: <100 mg/dL: Optimal 100-129 mg/dL: Near or above optimal 130-159 mg/dL: Borderline high 160-189 mg/dL: High >190 mg/dL: Very High CARDIAC RISK RATIO 3.4 3.3 - 4.4 C [facility] Blood 03/21/2025 11:2 7 AM EDT 03/21/2025 11:47 AM EDT us Palma MARTÍNEZ LAB BLOOD ORDERABLES Final Result Performing Organization Address City/[facility]/ZIP Co de Phone Number [address] [address] * Carbamazepine (Tegretol) level (05/02/2023 11:47 AM EST) CARBAMAZEPINE 8.3 8.0 - 12.0 ug/mL [facility] Blood 05/02/2023 11:4 7 AM EST 05/02/2023 12:02 PM EST us Jessie MARTÍNEZ LAB BLOOD ORDERABLES Final Resu lt Performing Organization Address City/[facility]/ZIP Co de Phone Number [address] [address] from Last 3 Months or Most Recently Relevant to Health Maintenance Insurance [employer] Member Subscriber Plan / Payer (Ef fective 2018-Present) Name:Abby Fajardo Relation to Subscriber:Self Name:Abby Fajardo Payer ID:[id number] (NAIC) Type:HMO Address: [address] [employer] Advance Directives For more information, please contact: [phone] (9AM - 5PM [facility], Monday-Monday) * Full Code (Presumed) (Latest Code Status on File) Date Activated Date Inactivated Comments 12/28/2018 9:30 AM 12/28/2018 2:19 PM * Full Code (Presumed) Date Activated Date Inactivated Comments 11/16/2018 11:50 AM 11/16/2018 4:44 PM Care Teams Telemetry Tech Relationship Specialty Start Date End Date Halle Dave MD [address] [place] [address] [email or web address] PCP - General 03/27/17 Halle Dave MD [address] [place] [address] [email or web address] Insurance Assigned Provider 09/16/23 Additional Source Comments The information contained in this document represents components of the legal health record. It is not the complete legal health record.[facility]
--- OUTSIDE RECORDS SUMMARY | 2025-04-02 19:18 | XMS_ITS | Encounter Summary ---
Author Organization [facility] Address [address] [place] [phone] Phone Care Team Providers Care Relations Mgr Name Role Phone Halle Dave MD Primary Care Provider [phone] Halle Dave MD Unavailable [phone] Encounter Details Date Type Department Care Team (Latest Contact Info) Description 05/02/2023 Transcribe Orders Virtual Department [address] [place] [address] Jessie Chua PA [address] [place] [address] [email or web address] Bilateral hip pain (Primary Dx); Bilateral thigh [...] pain documented in this encounter Care Teams Relations Mgr Relationship Specialty Start Date End Date Halle Dave MD [address] [place] [address] [email or web address] PCP - General 03/27/17 Halle Dave MD [address] [place] [address] [email or web address] Insurance Assigned Provider 09/16/23 documented as of this encounter Additional Source Comments The information contained in this document represents components of the legal health record. It is not the complete legal health record.[facility]
--- OUTSIDE RECORDS SUMMARY | 2025-04-02 19:18 | XMS_ITS | Encounter Summary ---
Author Organization [facility] Address [address] [place] [address] Phone Care Team Providers Care Planisher Name Role Phone Halle Dave MD Primary Care Provider [phone] Halle Dave MD Unavailable [phone] Encounter Details Date Type Department Care Team (Late st Contact Info) Description 10/30/2018 Ancillary Orders [facility] Orthopedics & Sports Medicine [address] [place] [address] Daria Matthews MD [address] [place] [address] Orthopedics & Sports Medicine, [facility] [place] [address] Social History Tobacco Use Types Packs/Day Years [...] on filedocumented in this encounter Care Teams Planisher Relationship Specialty Start Date End Date Halle Dave MD [address] [place] [address] PCP - General 03/27/17 Halle Dave MD 15 [place] [address] [email or web address] Insurance Assigned Provider 09/16/23 documented as of this encounter Additional Source Comments The information contained in this document represents components of the legal health record. It is not the complete legal health record.[facility]
--- OUTSIDE RECORDS SUMMARY | 2025-04-02 19:18 | XMS_ITS | Encounter Summary ---
Author Organization [facility] Address [address] [place] [address] Phone Care Team Providers Care Probation Manager Name Role Phone Halle Dave MD Primary Care Provider [phone] Halle Dave MD Unavailable [phone] Encounter Details Date Type Department Care Team (Late st Contact Info) Description 05/02/2017 Ancillary Orders [facility], -[address] [address] Jessie Chua PA [address] [place] [address] [email or web address] Low back pain, unspecified back pain laterality, [...] unspecified documented in this encounter Care Teams Probation Manager Relationship Specialty Start Date End Date Halle Dave MD 15 [place] [address] [email or web address] PCP - General 03/27/17 Halle Dave MD [address] [place] [address] [email or web address] Insurance Assigned Provider 09/16/23 documented as of this encounter Additional Source Comments The information contained in this document represents components of the legal health record. It is not the complete legal health record.[facility]
--- OUTSIDE RECORDS SUMMARY | 2025-04-02 19:18 | XMS_ITS | Encounter Summary ---
Author Organization [facility] Address [address] [place] [address] Phone Care Team Providers Care Screen Printing Inspector Name Role Phone Halle Dave MD Primary Care Provider [phone] Halle Dave MD Unavailable [phone] Encounter Details Date Type Department Care Team (Late st Contact Info) Description 10/31/2018 Prep for Surgery [facility] Virtual Department 30 [place] [address] Daria Matthews MD [address] [place] [address] [facility] [place] [address] Social History Tobacco Use Types Packs/Day Years [...] on filedocumented in this encounter Care Teams Screen Printing Inspector Relationship Specialty Start Date End Date Halle Dave MD 15 [place] [address] PCP - General 03/27/17 Halle Dave MD [address] [place] [address] [email or web address] Insurance Assigned Provider 09/16/23 documented as of this encounter Additional Source Comments The information contained in this document represents components of the legal health record. It is not the complete legal health record.[facility]
--- OUTSIDE RECORDS SUMMARY | 2025-04-02 19:18 | XMS_ITS | Encounter Summary ---
Author Organization [facility] Address [address] [place] [address] Phone Care Team Providers Care Roving Technician Name Role Phone Halle Dave MD Primary Care Provider [phone] Halle Dave MD Unavailable [phone] Encounter Details Date Type Department Care Team (Late st Contact Info) Description 11/16/2018 Procedure Pass [place] Admitting Dept - Virtual Department [address] [place] [address] Social History Tobacco Use Types Packs/Day Years [...] on filedocumented in this encounter Care Teams Roving Technician Relationship Specialty Start Date End Date Halle Dave MD 15 [place] [address] PCP - General 03/27/17 Halle Dave MD 15 [place] [address] Insurance Assigned Provider 09/16/23 documented as of this encounter Additional Source Comments The information contained in this document represents components of the legal health record. It is not the complete legal health record.[facility]
--- OUTSIDE RECORDS SUMMARY | 2025-04-02 19:18 | XMS_ITS | Encounter Summary ---
Author Organization [facility] Address [address] [place] [address] Phone Care Team Providers Care Clinical Engineer Name Role Phone Halle Dave MD Primary Care Provider [phone] Halle Dave MD Unavailable [phone] Encounter Details Date Type Department Care Team (Late st Contact Info) Description 12/28/2018 Procedure Pass [place] Admitting Dept - Virtual Department [address] [place] [address] Social History Tobacco Use Types Packs/Day Years [...] on filedocumented in this encounter Care Teams Clinical Engineer Relationship Specialty Start Date End Date Halle Dave MD 15 [place] [address] PCP - General 03/27/17 Halle Dave MD 15 [place] [address] Insurance Assigned Provider 09/16/23 documented as of this encounter Additional Source Comments The information contained in this document represents components of the legal health record. It is not the complete legal health record.[facility]
--- OUTSIDE RECORDS SUMMARY | 2025-04-02 19:18 | XMS_ITS | Encounter Summary ---
Author Organization [facility] Address [address] [place] [address] Phone Care Team Providers Care Drafting Instructor Name Role Phone Halle Dave MD Primary Care Provider [phone] Halle Dave MD Unavailable [phone] Encounter Details Date Type Department Care Team (Late st Contact Info) Description 10/31/2018 Prep for Surgery [facility] Virtual Department 30 [place] [address] Daria Matthews MD [address] [place] [address] [facility] [place] [address] [email or web address] Social History Tobacco Use Types Packs/Day Years [...] on filedocumented in this encounter Care Teams Drafting Instructor Relationship Specialty Start Date End Date Halle Dave MD 15 [place] [address] [email or web address] PCP - General 03/27/17 Halle Dave MD 15 [place] [address] [email or web address] Insurance Assigned Provider 09/16/23 documented as of this encounter Additional Source Comments The information contained in this document represents components of the legal health record. It is not the complete legal health record.[facility]
--- OUTSIDE RECORDS SUMMARY | 2025-04-02 19:18 | XMS_ITS | Encounter Summary ---
Author Organization [facility] Address [address] [place] [address] Phone Care Team Providers Care Neon Glass Bender Name Role Phone Halle Dave MD Primary Care Provider [phone] Halle Dave MD Unavailable [phone] Encounter Details Date Type Department Care Team (Late st Contact Info) Description 10/30/2018 Ancillary Orders [facility] - [address] [address] Daria Matthews MD [address] [place] [address] Orthopedics & Sports Medicine, [facility] [place] [address] [email or web address] Wrist pain, acute, left Social History Tobacco [...] left documented in this encounter Care Teams Neon Glass Bender Relationship Specialty Start Date End Date Halle Dave MD 15 [place] [address] [email or web address] PCP - General 03/27/17 Halle Dave MD 15 [place] [address] [email or web address] Insurance Assigned Provider 09/16/23 documented as of this encounter Additional Source Comments The information contained in this document represents components of the legal health record. It is not the complete legal health record.[facility]
--- OUTSIDE RECORDS SUMMARY | 2025-04-02 19:18 | XMS_ITS | Encounter Summary ---
Author Organization [facility] Address [address] [place] [address] Phone Care Team Providers Care Art Conservator Name Role Phone Halle Dave MD Primary Care Provider [phone] Halle Dave MD Unavailable [phone] Encounter Details Date Type Department Care Team (Late st Contact Info) Description 05/02/2017 Ancillary Orders [facility], -[address] [address] Jessie Chua PA [address] [place] [address] [email or web address] Low back pain, unspecified back pain laterality, [...] right documented in this encounter Care Teams Art Conservator Relationship Specialty Start Date End Date Halle Dave MD 15 [place] [address] [email or web address] PCP - General 03/27/17 Halle Dave MD 15 [place] [address] [email or web address] Insurance Assigned Provider 09/16/23 documented as of this encounter Additional Source Comments The information contained in this document represents components of the legal health record. It is not the complete legal health record.[facility]
== END 2025-04-02 14:25 | disposition home or self-care (01) ==
LOC: HO.HMCFM 13:36
PROVIDERS: PCP Physician Assistant; Visit Provider Physician Assistant
DX: Z00.00 Encounter for general adult medical examination without abnormal findings (principal); I10 Essential (primary) hypertension; G40.909 Epilepsy, unspecified, not intractable, without status epilepticus; R73.03 Prediabetes; E03.8 Other specified hypothyroidism; M54.2 Cervicalgia

== ENCOUNTER 2025-05-20 15:44 | Outpatient (REF) | payer BC, SELFPAY ==
--- NOTE | ~2025-05-20 | US_ITS ---
EXAMINATION: US SOFT TISSUE HEAD AND NECK CLINICAL INFORMATION: R22.1 - Localized swelling, mass and lump, neck COMPARISON: None available. TECHNIQUE: Linear transducer cunningham-scale and color Doppler examination with attention to the palpable abnormality FINDINGS: No solid or cystic soft tissue mass or enlarged lymph node is seen in the right lower neck/supraclavicular region. Palpable abnormality appears to correspond to a hypertrophied right sternoclavicular joint. US/US soft tiss head and/or neck IMPRESSION: Question hypertrophied right sternoclavicular joint. Recommend follow-up x-ray. This be further evaluated with chest CT or MRI if clinically warranted. Electronically signed by: Christina Lamar MD 05/20/2025 05:28 PM ETHEL GARCIA
--- OUTSIDE RECORDS SUMMARY | 2025-05-20 22:26 | XMS_ITS | Encounter Summary ---
Author Organization [facility] Address [address] [place] [address] Phone Care Team Providers Care Net C Developer Name Role Phone Halle Dave MD Primary Care Provider [phone] Halle Dave MD Unavailable [phone] Palma Weeks Primary Care Provider [phone] Encounter Details Date Type Department Care Team (Late st Contact Info) Description 10/30/2018 Ancillary Orders [facility] Orthopedics & Sports Medicine [address] [place] [address] Daria Matthews MD [address] [place] [address] Orthopedics & Sports Medicine, [facility] [place] [address] [email or web address] Social History Tobacco Use Types Packs/Day Years [...] on filedocumented in this encounter Care Teams Net C Developer Relationship Specialty Start Date End Date Halle Dave MD [address] [place] [address] PCP - General 03/27/17 02/05/25 Palma Weeks PA [address] [place] [address] PCP - General Physician Terminologist 02/06/25 Halle Dave MD [address] [place] [address] [email or web address] Insurance Assigned Provider 09/16/23 04/26/25 documented as of this encounter Additional Source Comments The information contained in this document represents components of the legal health record. It is not the complete legal health record.[facility]
--- OUTSIDE RECORDS SUMMARY | 2025-05-20 22:26 | XMS_ITS | Encounter Summary ---
Author Organization [facility] Address [address] [place] [address] Phone Care Team Providers Care Brewmaster Name Role Phone Halle Dave MD Primary Care Provider [phone] Halle Dave MD Unavailable [phone] Palma Weeks Primary Care Provider [phone] Encounter Details Date Type Department Care Team (Late st Contact Info) Description 05/02/2017 Ancillary Orders [facility], X-Ray - [address] [address] Jessie Chua PA [address] [place] [address] [email or web address] Low back pain, unspecified back pain laterality, [...] only and not for interpretation. us Jessie LEYVA OUTSIDE IMAGING W/OUT INTER PRETATION Final Result documented in this encounter Visit Diagnoses Diagnosis Low back pain, unspecified back pain laterality, unspecified chronicity, with sciatica presence unspecified Groin pain, right Low back pain, unspecified back pain laterality, unspecified chronicity, with sciatica presence unspecified Groin pain, right documented in this encounter Care Teams Brewmaster Relationship Specialty Start Date End Date Halle Dave MD 15 [place] [address] [email or web address] PCP - General 03/27/17 02/05/25 Palma Weeks PA [address] [place] [address] PCP - General Physician Global Technical Writer 02/06/25 Halle Dave MD [address] [place] [address] [email or web address] Insurance Assigned Provider 09/16/23 04/26/25 documented as of this encounter Additional Source Comments The information contained in this document represents components of the legal health record. It is not the complete legal health record.[facility]
--- OUTSIDE RECORDS SUMMARY | 2025-05-20 22:26 | XMS_ITS | Encounter Summary ---
Author Organization [facility] Address [address] [place] [address] Phone Care Team Providers Care Operation Manager Name Role Phone Halle Dave MD Primary Care Provider [phone] Halle Dave MD Unavailable [phone] Palma Weeks Primary Care Provider [phone]- [phone] Encounter Details Date Type Department Care Team (Late st Contact Info) Description 05/02/2017 Ancillary Orders [facility], X-Ray - [address] [address] Jessie Chua PA [address] [place] [address] [email or web address] Low back pain, unspecified back pain laterality, [...] unspecified documented in this encounter Care Teams Operation Manager Relationship Specialty Start Date End Date Halle Dave MD [address] [place] [address] [email or web address] PCP - General 03/27/17 02/05/25 Palma Weeks PA [address] [place] [address] PCP - General Physician Edge Sawyer 02/06/25 Halle Dave MD [address] [place] [address] [email or web address] Insurance Assigned Provider 09/16/23 04/26/25 documented as of this encounter Additional Source Comments The information contained in this document represents components of the legal health record. It is not the complete legal health record.[facility]
--- OUTSIDE RECORDS SUMMARY | 2025-05-20 22:26 | XMS_ITS | Encounter Summary ---
Author Organization [facility] Address [address] [place] [address] Phone Care Team Providers Care Yeast Pusher Name Role Phone Halle Dave MD Primary Care Provider [phone] Halle Dave MD Unavailable [phone] Palma Weeks Primary Care Provider [phone]- [phone] Encounter Details Date Type Department Care Team (Late st Contact Info) Description 10/31/2018 Prep for Surgery [facility] Virtual Department 30 [place] [address] Daria Matthews MD [address] [place] [address] Orthopedics & Sports Medicine, [place] [address] [email or web address] Social History Tobacco Use Types Packs/Day Years [...] on filedocumented in this encounter Care Teams Yeast Pusher Relationship Specialty Start Date End Date Halle Dave MD [address] [place] [address] [email or web address] PCP - General 03/27/17 02/05/25 Palma Weeks PA 140 [place] [address] PCP - General Physician Computational Linguist 02/06/25 Halle Dave MD [address] [place] [address] [email or web address] Insurance Assigned Provider 09/16/23 04/26/25 documented as of this encounter Additional Source Comments The information contained in this document represents components of the legal health record. It is not the complete legal health record.[facility]
--- OUTSIDE RECORDS SUMMARY | 2025-05-20 22:26 | XMS_ITS | Encounter Summary ---
Author Organization [facility] Address [address] [place] [address] Phone Care Team Providers Care Blowing Engineer Name Role Phone Halle Dave MD Primary Care Provider [phone] Halle Dave MD Unavailable [phone] Palma Weeks Primary Care Provider [phone]- [phone] Encounter Details Date Type Department Care Team (Late st Contact Info) Description 10/31/2018 Prep for Surgery [facility] Virtual Department 30 [place] [address] Daria Matthews MD [address] [place] [address] Orthopedics & Sports Medicine, [facility] [place] [address] Social History Tobacco Use Types Packs/Day Years [...] on filedocumented in this encounter Care Teams Blowing Engineer Relationship Specialty Start Date End Date Halle Dave MD [address] [place] [email or web address] PCP - General 03/27/17 02/05/25 Palma Weeks PA [address] [place] [address] PCP - General Physician Print Shop Stenographer 02/06/25 Halle Dave MD [address] [place] [address] [email or web address] Insurance Assigned Provider 09/16/23 04/26/25 documented as of this encounter Additional Source Comments The information contained in this document represents components of the legal health record. It is not the complete legal health record.[facility]
--- OUTSIDE RECORDS SUMMARY | 2025-05-20 22:27 | XMS_ITS | Clinical Summary ---
Author Organization [facility] Address [address] [place] [address] Phone Care Team Providers Care Field Merchandiser Name Role Phone Palma Weeks Primary Care Provider [phone] Allergies Active Allergy Reactions Criticality Noted Date [...] would benefit from dedicated re-evaluation with a seed and fertilizer specialist. Unfortunately I have nothing rheumatology-specific to [...] - 03/21/2025 11:59 PM EDT Hospital En[facility] [address] [address] Palma Weeks PA Discharge Disposition: Home or Self Care 03/21/2025 Transcribe Orders [address] [address] Palma Weeks PA Other intervertebral disc degeneration [...] 04/22/2022 INFLUENZA VACCINE (#1) 2025 COVID-19 VACCINE (1 - 2024- season) 2025 CREATININE LEVEL 03/21/2026 03/21/2025, , [...] chronicity Cervicalgia Essential (primary) hypertension Prediabetes URINALYSIS WITH REFLEX TO URINE CULTURE Routine 03/21/2025 11:45 AM EDT [...] Essential (primary) hypertension Prediabetes COMPREHENSIVE METABOLIC PANEL (CMP) Routine 03/21/2025 11:27 AM EDT Other intervertebral [...] (03/21/2025 11:45 AM EDT) COLOR Yellow Yellow [facility] CLARITY Clear [facility] GLUCOSE Negative Negative [facility] BILI Negative Negative [facility] KETONES Negative Negative [facility] SPECIFIC GRAVITY 1.010 1.005 - 1.030 [facility] BLOOD Negative Negative [facility] PH 6.5 5.0 - 8.0 [facility] Protein-UA Negative Negative [facility] NITRITE Negative Negative [facility] Leukocyte esterase, ur Negative Negative [facility] Urine (Urine) 03/21/2025 11: 45 AM EDT 03/21/2025 11:47 AM EDT us Palma MARTÍNEZ [facility] URINE ORDERABLES Final Result Performing Organization Address City/State/[facility] Co de Phone Number [address] [address] * Microalbumin/creatinine ratio, random urine (03/21/2025 11:45 AM EDT) URINE MICROALBUMIN <1.2 0 - 2.3 mg/dL [facility] URINE CREATININE 53 mg/dL [facility] MICROALB/CRE RATIO NOT CALCULATED 0 - 20 mg/g Cre [facility] Comment:due to Microalbumin <1.2 Urine (Urine) 03/21/2025 11: 45 AM EDT 03/21/2025 11:47 AM EDT us Palma MARTÍNEZ [facility] URINE ORDERABLES Final Result [address] [address] * (ABNORMAL) Comprehensive metabolic panel (03/21/2025 11:27 AM EDT) SODIUM 132(L) 133 - 146 mmol/L [facility] POTASSIUM 4.2 3.3 - 5.1 mmol/L [facility] CHLORIDE 97 96 - 108 mmol/L [facility] CO2 23 21 - 35 mmol/L [facility] BUN 5(L) 6 - 19 mg/dL [facility] CREATININE 0.40(L) 0.5 - 1.5 mg/dL [facility] GLUCOSE 94 70 - 99 mg/dL [facility] ALBUMIN 4.6 3.9 - 4.8 g/dL [facility] TOTAL PROTEIN 7.5 6.5 - 8.0 g/dL [facility] CALCIUM 9.2 8.4 - 10.3 mg/dL [facility] ALKALINE PHOSPHATASE 83 39 - 117 U/L [facility] TOTAL BILIRUBIN 0.3 0.0 - 1.2 mg/dL [facility] AST 25 0 - 37 U/L [facility] ALT 17 0 - 40 U/L [facility] GLOBULIN 2.9 1 - 4.8 g/dL [facility] EGFR 114 >59 mL/min/1.7 3m2 [facility] Comment:Estimated glomerular filtration rate calculated using the CKD-EPI refit equation. ANION GAP 16 10 - 20 mmol/L [facility] Blood 03/21/2025 11:2 7 AM EDT 03/21/2025 11:47 AM EDT Palma [facility] BLOOD BKR ORDERABLES F inal Result [address] [address] * (ABNORMAL) TSH with reflex (03/21/2025 11:27 AM EDT) TSH 4.83(H) 0.27 - 4.20 uIU/mL [facility] Blood 03/21/2025 11:2 7 AM EDT 03/21/2025 11:47 AM EDT Palma MARTÍNEZ [facility] BLOOD BKR ORDERABLES F inal Result Performing Organization Address City/[facility]/ZIP Co de Phone Number [address] [address] * CBC (03/21/2025 11:27 AM EDT) WBC 4.06 4.00 - 11.00 K/uL [facility] RBC 4.08 4.00 - 5.20 M/uL [facility] HGB 12.6 12.0 - 16.0 g/dL [facility] HCT 37.4 36.0 - 46.0 % [facility] PLT 340 150 - 450 K/uL [facility] MCV 91.7 80.0 - 100.0 fL [facility] MCH 30.9 27.0 - 31.0 pg [facility] MCHC 33.7 32.0 - 36.0 g/dL [facility] RDW 12.9 11.5 - 14.5 % [facility] MPV 9.2 8.4 - 12.0 fL [facility] NRBC 0.00 0.00 /100 WBCs [facility] ABSOLUTE NRBC 0.00 0.00 K/uL [facility] Blood 03/21/2025 11:2 7 AM EDT 03/21/2025 11:47 AM EDT Palma [facility] BLOOD BKR ORDERABLES F inal Result [address] [address] * Free T4 (03/21/2025 11:27 AM EDT) FREE T4 0.9 0.9 - 1.7 ng/dL [facility] Blood 03/21/2025 11:2 7 AM EDT 03/21/2025 11:47 AM EDT Palma [facility]NE[facility] BLOOD BKR ORDERABLES F inal Result Performing Organization Address City/[facility]/ZIP Co de Phone Number [address] [address] * Hemoglobin A1c (03/21/2025 11:27 AM EDT) HEMOGLOBIN A1C 5.3 4.3 - 5.8 % [facility] Blood 03/21/2025 11:2 7 AM EDT 03/21/2025 11:47 AM EDT Palma MARTÍNEZ [facility] BLOOD BKR ORDERABLES F inal Result Performing Organization Address [facility] de Phone Number [address] [address] * (ABNORMAL) Lipid panel (03/21/2025 11:27 AM EDT) HDL 78 mg/dL [facility] Comment: Interpretation <40 mg/dL: Low HDL cholesterol (major risk factor for CHD) Greater than or equal to 60 mg/dL: High HDL cholesterol ( negative risk factor for CHD) HDL - cholesterol is affected by a number of factors, e.g. smoking, excerise, hormones, sex and age. CHOLESTEROL 268(H) 0 - 240 mg/dL [facility] TRIGLYCERIDES 251(H) 30 - 160 mg/dL [facility] LDL 140(H) 50 - 129 mg/dL [facility] Comment: LDL levels in terms of risk for coronary heart disease: <100 mg/dL: Optimal 100-129 mg/dL: Near or above optimal 130-159 mg/dL: Borderline high 160-189 mg/dL: High >190 mg/dL: Very High CARDIAC RISK RATIO 3.4 3.3 - 4.4 [facility] Blood 03/21/2025 11:2 7 AM EDT 03/21/2025 11:47 AM EDT us Palma MARTÍNEZ [facility] BLOOD BKR ORDERABLES F inal Result Performing Organization Address City/[facility]/ZIP Co de Phone Number [address] [address] * Carbamazepine (Tegretol) level (05/02/2023 11:47 AM EST) CARBAMAZEPINE 8.3 8.0 - 12.0 ug/mL [facility] Blood 05/02/2023 11:4 7 AM EST 05/02/2023 12:02 PM EST us Jessie MARTÍNEZ LAB BLOOD ORDERABLES Final Resu lt Performing Organization Address [facility] Co de Phone Number [address] [address] from Last 3 Months or Most Recently Relevant to Health Maintenance Insurance [facility], [facility], [facility], [facility], [facility], [facility], [facility], [facility], [facility] [place] Advance Directives For more information, please contact: [phone] (9AM - 5PM [facility], Monday-Monday) * Full Code (Presumed) (Latest Code Status on File) Date Activated Date Inactivated Comments 12/28/2018 9:30 AM 12/28/2018 2:19 PM * Full Code (Presumed) Date Activated Date Inactivated Comments 11/16/2018 11:50 AM 11/16/2018 4:44 PM Care Teams Field Merchandiser Relationship Specialty Start Date End Date Palma Weeks PA [address] [place] [id number] PCP - General Physician Credit Processor 02/06/25 Additional Source Comments The information contained in this document represents components of the legal health record. It is not the complete legal health record.[facility]
--- OUTSIDE RECORDS SUMMARY | 2025-05-20 22:27 | XMS_ITS | Encounter Summary ---
Author Organization [facility] Address [address] [place] [address] Phone Care Team Providers Care Chemical Blender Name Role Phone Halle Dave MD Primary Care Provider [phone] Halle Dave MD Unavailable [phone] Palma Weeks Primary Care Provider [phone]- [phone] Encounter Details Date Type Department Care Team (Latest Contact Info) Description 05/02/2023 Transcribe Orders Virtual Department [address] [place] [address] Jessie Chua PA [address] [place] [address] [email or web address] Bilateral hip pain (Primary Dx); Bilateral thigh [...] pain documented in this encounter Care Teams Chemical Blender Relationship Specialty Start Date End Date Halle Dave MD [address] [place] [address] [email or web address] PCP - General 03/27/17 02/05/25 Palma Weeks PA [address] [place] [address] PCP - General Physician Stem Roller Operator 02/06/25 Halle Dave MD [address] [place] [address] [email or web address] Insurance Assigned Provider 09/16/23 04/26/25 documented as of this encounter Additional Source Comments The information contained in this document represents components of the legal health record. It is not the complete legal health record.[facility]
--- OUTSIDE RECORDS SUMMARY | 2025-05-20 22:27 | XMS_ITS | Encounter Summary ---
Author Organization [facility] Address [address] [place] [address] Phone Care Team Providers Care Real Estate Instructor Name Role Phone Halle Dave MD Primary Care Provider [phone] Halle Dave MD Unavailable [phone] Palma Weeks Primary Care Provider + [phone] Encounter Details Date Type Department Care Team (Late st Contact Info) Description 12/28/2018 Procedure Pass [place] Admitting Dept - Virtual Department [address] [place] [address] Social History Tobacco Use Types Packs/Day Years [...] on filedocumented in this encounter Care Teams Real Estate Instructor Relationship Specialty Start Date End Date Halle Dave MD [address] [place] [address] PCP - General 03/27/17 02/05/25 Palma Weeks PA [address] [place] [address] PCP - General Physician Paint Roller Cover Machine Setter 02/06/25 Halle Dave MD [address] [place] [address] [email or web address] Insurance Assigned Provider 09/16/23 04/26/25 documented as of this encounter Additional Source Comments The information contained in this document represents components of the legal health record. It is not the complete legal health record.[facility]
--- OUTSIDE RECORDS SUMMARY | 2025-05-20 22:27 | XMS_ITS | Encounter Summary ---
Author Organization [facility] Address [address] [place] [address] Phone Care Team Providers Care Library Technician Name Role Phone Halle Dave MD Primary Care Provider [phone] Halle Dave MD Unavailable [phone] Palma Weeks Primary Care Provider [phone] Encounter Details Date Type Department Care Team (Late st Contact Info) Description 10/30/2018 [facility] [address] [address] Daria Matthews MD [address] [place] [address] Orthopedics & Sports Medicine, [facility] [place] [address] [email or web address] Wrist pain, acute, left Social History Tobacco [...] left documented in this encounter Care Teams Library Technician Relationship Specialty Start Date End Date Halle Dave MD [address] [place] [address] [email or web address] PCP - General 03/27/17 02/05/25 Palma Weeks PA [address] [place] [address] PCP - General Physician Power Sweeper Operator 02/06/25 Halle Dave MD [address] [place] [address] [email or web address] Insurance Assigned Provider 09/16/23 04/26/25 documented as of this encounter Additional Source Comments The information contained in this document represents components of the legal health record. It is not the complete legal health record.[facility]
--- OUTSIDE RECORDS SUMMARY | 2025-05-20 22:27 | XMS_ITS | Encounter Summary ---
Author Organization [facility] Address [address] [place] [address] Phone Care Team Providers Care Machine Deburrer Name Role Phone Halle Dave MD Primary Care Provider [phone] Halle Dave MD Unavailable [phone] Palma Weeks Primary Care Provider + [phone] Encounter Details Date Type Department Care Team (Late st Contact Info) Description 11/16/2018 Procedure Pass [place] Admitting Dept - Virtual Department [address] [place] [address] Social History Tobacco Use Types Packs/Day Years [...] on filedocumented in this encounter Care Teams Machine Deburrer Relationship Specialty Start Date End Date Halle Dave MD [address] [place] [address] PCP - General 03/27/17 02/05/25 Palma Weesk PA [address] [place] [address] PCP - General Physician Dock Pumper 02/06/25 Halle Dave MD [address] [place] [address] [email or web address] Insurance Assigned Provider 09/16/23 04/26/25 documented as of this encounter Additional Source Comments The information contained in this document represents components of the legal health record. It is not the complete legal health record.[facility]
== END 2025-05-20 15:45 | disposition home or self-care (01) ==
LOC: HO.US 15:44
PROVIDERS: PCP Physician Assistant; Visit Provider Physician Assistant
DX: R22.1 Localized swelling, mass and lump, neck (principal); E03.8 Other specified hypothyroidism
CPT/HCPCS: 76536

== ENCOUNTER → 2025-05-20 15:48 | Outpatient (BNV) | payer BC, SELFPAY | PROVIDERS: PCP Physician Assistant; Visit Provider Radiology Diagnostic Radiology | DX: R22.1 Localized swelling, mass and lump, neck (principal) | CPT/HCPCS: 76536 ==

== ENCOUNTER 2025-05-22 11:04 | Outpatient (AMB) | payer BC, SELFPAY ==
--- NOTE | 2025-05-22 11:16 | MHC.PC.OV ---
Vital Signs 05/22/25 11:21 Height 4 ft 8.96 in Weight 188 lb BMI 40.7 BP 128/84 Blood Pressure Location Lt brachial Position Sitting Respiration 14 Pulse 83 Pulse Source Pulse Oximeter Temp 98.4 F Temp Source Oral Pulse Oximetry (%) 98 Oxygen Delivery Method Room Air Intake Visit Reasons: neck exam Intake Note: Lump on the neck. Had ultrasound on neck on Monday. Product Safety Compliance Leader Required: No Allergies phenytoin (From DILANTIN) Allergy (Severe, Verified 05/22/25 11:20) RASH amoxicillin (Augmentin) Allergy (Unknown, Verified 05/22/25 11:20) Unknown clavulanic acid (Augmentin) Allergy (Unknown, Verified 05/22/25 11:20) Unknown Medication List - Last Reconciled 05/22/25 by Palma Weeks PA-C carisoprodol (Soma) 350 mg PO BEDTIME PRN 30 days diclofenac sodium 50 mg PO Q12H PRN gabapentin 300 mg PO BID losartan 25 mg PO BID omeprazole 20 mg PO DAILY Tobacco use date assessed: 05/22/25 Dental Screening Dental Screen Date: 04/02/25 HPI neck exam HPI Details Patient is a 60-year-old female who presents today for an acute problem visit. She reports a significant past medical history of hypertension, seizure disorder, hx of cva, history of peptic ulcer disease, OA, DDD, and chronic pain. -a couple of weeks ago she noticed swelling on the right side of her lower neck. She states that it is not painful but she has noticed that it looks like there is some swelling when compared to the other side. She says that if she pushes on her lower neck she can feel an obvious enlargement on the right clavicle area/base of the neck. She states that it feels the size of a egg yolk. It has been unchanged in size. She did have her coworkers look at it who did remark that it looks enlarged when compared to the left. There was no trauma or injury. No overlying redness. She did send me a portal message and was concerned about a goiter. I did order an ultrasound which was negative for any lymphadenopathy but did remark on clavicular hypertrophy. She states that she does not want to do a significant workup for this as it is not bothering her. States that she takes gabapentin 300 mg total daily and Soma as needed for muscle pain. She is doing well with the diclofenac. Feels some improvement of symptoms. She hsa followed with Dr. Rojas and states that there was not much that could be offered. She has tried injections in the past but ineffective. She states that she saw rheum who told her she was wasting their time . CV: Blood pressure today in the office is elevated at 128/84. She states at home her bp is normal around 120/70. She gets stressed coming into doctor's offices and has a hx of white coat htn. Asymptomatic. She is supposed to be on losartan 25 mg twice a day. She cannot tolerate statins. She had elevated CK levels. Not interested in repatha right now. Neuro: On Tegretol 200 mg q.i.d. following with Neurology, Dr. Alonso. She also reports a hx of a stroke 11 years ago and denies any lingering sx. GI: On omeprazole 20 mg Psych: states that she has some depression but only related to needing a cane. She does not like that she has to use a cane and cannot bowl anymore. Denies real depression sx. 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 Current occupational exposures/hazards: No Cognitive needs: No Hearing needs: No Vision needs: Yes (glasses) Questionnaire Thrive Questionnaire Date Thrive assessed: 02/06/25 I am a: Patient What is your living situation today?: I have a steady place to live Within the past 12 months, did the food you bought not last and you didn't have the money to get more?: Never true Within the past 12 months, did you worry whether your food would run out before you got money to buy more?: Never true Do you have trouble paying for medicines?: No Do you have trouble getting transportation to medical appointments?: No Do you have trouble paying your heating and electricity bill?: No Do you have trouble taking care of your child, family member or friend?: I choose not to answer this question Do you have trouble with day-to-day activities such as bathing, preparing meals, shopping, managing finances, etc.?: I choose not to answer this question Are you currently unemployed and looking for a job?: No Are you interested in more education?: No Please select the resources that you would like help with: None Currently or been in a relationship where the following occur: No concerns reported THRIVE Score: 0 AUDIT C Alcohol Use Questionnaire (AUDIT-C) 1. How often do you have a drink containing alcohol?: Never 3. How often do you have six or more drinks on one occasion?: Never Total Score: 0 NINA-7 AMB Questionnaire NINA-7 Date NINA - 7 assessed: 02/06/25 Source: Developed by Drs. Xiang Joshua, Nichole Neil, Bernardino Hunt and colleagues, with an educational jazzy from [email or web address]. Physical exam (Primary Care) Vital Signs: Last Vital Signs Temp 98.4 F 05/22/25 11:21 Pulse 83 05/22/25 11:21 Resp 14 05/22/25 11:21 BP 128/84 05/22/25 11:21 Pulse Ox 98 05/22/25 11:21 Oxygen Delivery Method Room Air 05/22/25 11:21 BMI result Body Mass Index 40.7 Tobacco/Smoking Status: Tobacco use Status Tobacco use date assessed 05/22/25 05/22/25 11:23 Patient Tobacco Use Status Never used Tobacco 05/22/25 11:18 e-Cigarette/Vaping Use Never Used 05/22/25 11:18 Thrive Assessment: Date of Thrive Assessment Date Thrive assessed 02/06/25 05/22/25 11:18 Currently or been in a relationship where the following occur: No concerns reported Const Orientation/consciousness: patient oriented x3 HENMT Ears: hearing grossly normal bilaterally Neck Other: There is prominence noted of the right sternoclavicular joint when compared to the left. Thyroid: Thyroid normal Lymphatic: no lymphadenopathy noted Resp Auscultation: clear to auscultation bilaterally Cardio Rate: regular rate Rhythm: regular rhythm Heart sounds: S1 normal heart sound present and S2 normal heart sound present GI Inspection: Yes normal to inspection Palpation (GI): Soft to palpation and Other GI palpation findings present (nontender, no cva tenderness) Auscultation: normoactive bowel sounds Rectal Exam - Female: deferred Skin General skin exam: no rashes or lesions noted Neuro General: patient oriented x3, gait normal and no focal motor deficits Results Reviewed Results Reviewed: US/US soft tiss head and/or neck IMPRESSION: Question hypertrophied right sternoclavicular joint. Recommend follow-up x-ray. This be further evaluated with chest CT or MRI if clinically warranted. Coding Level of Care Code Est Pt Level 4 (38896) Add On Problem Visit Only Diagnoses Localized swelling, mass or lump of neck R22.1 HTN (hypertension) I10 Prediabetes R73.03 Subclinical hypothyroidism E03.8 Dyslipidemia E78.5 Assessment & Plan Assessment & Plan (1) Localized swelling, mass or lump of neck: Code(s): R22.1 - Localized swelling, mass and lump, neck Category: Medical Plan: X-ray ordered We will check labs It is not tender but the joint is more prominent on the right when compared to the left. We will follow up pending testing. She will let me know if anything worsens or changes and discuss further workup such as CT or MRI. Declines that now. (2) HTN (hypertension): Code(s): I10 - Essential (primary) hypertension Category: Medical Plan: WNL. Continue current regimen (3) Prediabetes: Code(s): R73.03 - Prediabetes Category: Medical Plan: We will monitor A1c (4) Subclinical hypothyroidism: Code(s): E03.8 - Other specified hypothyroidism Category: Medical Plan: We will monitor TSH (5) Dyslipidemia: Code(s): E78.5 - Hyperlipidemia, unspecified Category: Medical Plan: Lipids ordered. Not on statin due to intolerance. Orders: Orders XR clavicle RT Today R22.1 - Localized swelling, mass and lump, neck Comprehensive Met. Panel 3 Months E03.8 - Other specified hypothyroidism, E78.5 - Hyperlipidemia, unspecified, I10 - Essential (primary) hypertension, R73.03 - Prediabetes TSH reflex Free T4 3 Months E03.8 - Other specified hypothyroidism, E78.5 - Hyperlipidemia, unspecified, I10 - Essential (primary) hypertension, R73.03 - Prediabetes Lipid Panel 3 Months E03.8 - Other specified hypothyroidism, E78.5 - Hyperlipidemia, unspecified, I10 - Essential (primary) hypertension, R73.03 - Prediabetes Hemoglobin A1c 3 Months E03.8 - Other specified hypothyroidism, E78.5 - Hyperlipidemia, unspecified, I10 - Essential (primary) hypertension, R73.01 - Impaired fasting glucose, R73.03 - Prediabetes
[2025-05-22 11:21] VITALS: BP 128/84; PULSE 83; RESP 14; TEMP 36.9; O2SAT 98; BMI 40.7
== END 2025-05-22 11:51 | disposition home or self-care (01) ==
PROVIDERS: PCP Physician Assistant; Visit Provider Physician Assistant
DX: R22.1 Localized swelling, mass and lump, neck (principal); I10 Essential (primary) hypertension; R73.03 Prediabetes; E03.8 Other specified hypothyroidism; E78.5 Hyperlipidemia, unspecified

== ENCOUNTER 2025-05-22 11:04 | Outpatient (REF) | payer BC, SELFPAY ==
--- NOTE | ~2025-05-22 | XR_ITS ---
EXAMINATION: XR CLAVICLE, RIGHT CLINICAL INFORMATION: R22.1 - Localized swelling, mass and lump, neck COMPARISON: Correlated to chest x-ray dated May 28, 2019. TECHNIQUE: AP views of the right clavicle. FINDINGS: No acute cortical disruption. Acromioclavicular joint is well aligned. No lytic or blastic lesions. No periosteal bone reaction. Degenerative changes in the glenohumeral joint. XR/XR clavicle RT IMPRESSION: No acute displaced fracture. Electronically signed by: Patricio Garcia MD 05/22/2025 01:53 PM EST
[2025-05-22 18:25] LABS: Alanine Aminotransferase 52 U/L (0-31); Albumin Level 4.7 g/dL (3.5-5.0); Alkaline Phosphatase 83 U/L (39-117); Anion Gap 13 (12-20); Aspartate Amino Transferase 51 U/L (5-31); Blood Urea Nitrogen 5 mg/dL (9-16); Calcium 9.3 mg/dL (8.4-10.2); Carbon Dioxide 25 mmol/L (22-29); Chloride 101 mmol/L (96-108); Estimated Glomerular Filt Rate > 60; Potassium 4.1 mmol/L (3.3-5.1); Sodium 135 mmol/L (135-145); Total Protein 7.6 g/dL (6.5-8.0)
== END 2025-05-22 11:05 | disposition home or self-care (01) ==
LOC: HO.HMGCX 11:04
PROVIDERS: PCP Physician Assistant; Visit Provider Physician Assistant
DX: R22.1 Localized swelling, mass and lump, neck (principal); I10 Essential (primary) hypertension; R73.03 Prediabetes; E03.8 Other specified hypothyroidism; E78.5 Hyperlipidemia, unspecified; Z86.73 Personal history of transient ischemic attack (TIA), and cerebral infarction without residual deficits
CPT/HCPCS: 36415; 73000; 80053; 84443

== ENCOUNTER → 2025-05-22 13:11 | Outpatient (BNV) | payer BC, SELFPAY | PROVIDERS: PCP Physician Assistant; Visit Provider Radiology Diagnostic Radiology | DX: R22.1 Localized swelling, mass and lump, neck (principal) | CPT/HCPCS: 73000 ==